=== PATIENT | male | born 1940 | race Caucasian/White ===

== ENCOUNTER 2019-10-13 12:28 | Outpatient (CLI) | payer MEDICARE, SELFPAY ==
[2019-10-13 13:25] LABS: Hemoglobin A1C 11.6 % (<5.7)
[2019-10-13 13:27] LABS: Alanine Aminotransferase 25 U/L (4-50); Albumin Level 3.9 g/dL (3.5-5.1); Alkaline Phosphatase 84 U/L (38-126); Anion Gap 13.7 mmol/L (7-16); Aspartate Amino Transferase 19 U/L (17-59); Bilirubin,Total 0.8 mg/dL (0.2-1.3); Blood Urea Nitrogen 11 mg/dL (9-20); Calcium 8.8 mg/dL (8.4-10.2); Carbon Dioxide 27 mmol/L (22-30); Chloride 93 mmol/L (98-107); Estimated Glomerular Filt Rate > 60; Glucose 459 mg/dL (75-110); Potassium 4.7 mmol/L (3.4-5.0); Sodium 129 mmol/L (137-145)
[2019-10-13 13:38] LABS: LDL Cholesterol Direct 62 mg/dL
[2019-10-13 13:55] LABS: Creatinine Urine 116.3 mg/dL
[2019-10-13 13:57] LABS: MALB Creatinine Ratio 7.8 mg/g (0-30); Microalbumin Urine Random 9.1 mg/L (0-16.7)
== END 2019-10-13 12:29 | disposition home or self-care (01) ==
PROVIDERS: PCP Internal Medicine Geriatric Medicine; Visit Provider Internal Medicine Geriatric Medicine
DX: E11.9 Type 2 diabetes mellitus without complications (principal)
CPT/HCPCS: 36415; 80053; 82043; 83036; 83721

== ENCOUNTER 2020-01-19 12:59 | Observation (INO) | payer MEDICARE, SELFPAY ==
[2020-01-19] VITALS (11 sets, daily range): BP systolic 108–147; BP diastolic 58–81; PULSE 73–87; RESP 16–20; TEMP 36.6–36.9; O2SAT 96–100; BMI 35.6
--- NOTE | ~2020-01-19 | XR_ITS ---
EXAMINATION: XR chest 2V DATE: 01/19/2020 13:31 INDICATION: Chest pain TECHNIQUE: AP and lateral views of the chest are obtained. COMPARISON: None available FINDINGS: Cardiomegaly is noted. There appears to be a mild diffuse interstitial pattern. There is no pleural effusion or pneumothorax. Median sternotomy wires and mediastinal surgical clips are seen, l ikely from prior coronary artery bypass grafting. Changes of anterior fusion procedure are noted in t he cervical spine. There is mild thoracic spondylosis. IMPRESSION: 1. Cardiomegaly with possible mild pulmonary edema. Reviewed, dictated and finalized at location A. IAL COLLECTIONS LIBRARIAN
--- NOTE | ~2020-01-19 | XR_ITS ---
EXAMINATION: XR abdomen/kub 1V EXAM DATE: 01/19/2020 15:58 INDICATION: Abdominal distention. Appendectomy. TECHNIQUE: Frontal projection(s) of the abdomen for interpretation. There is no prior study for susie truong. FINDINGS: There is expected amount of colonic stool and gas. No small bowel dilation, nonobstructiv e bowel gas pattern. There are no suspicious calcifications identified. There is no organomegaly suspected. The bones are unremarkable. IMPRESSION: Unremarkable abdomen x-ray exam. Reviewed, dictated and finalized at location B. AWAKE COUNSELOR
--- NOTE | 2020-01-19 13:10 | ECG_ITS ---
Measurements Intervals [place] Rate: 77 P: 3 AL: 171 QRS: -5 QRSD: 115 T: 64 QT: 354 QTc: 402 Interpretive Statements SINUS RHYTHM BORDERLINE R WAVE PROGRESSION, ANTERIOR LEADS BASELINE ARTIFACT- II, III, AVR, AVL, AVF BORDERLINE ECG Electronically Signed On 01-19-2020 13:29:44 METALLOGRAPHIC TECHNICIAN by Marcellus Hernandez D.O.
[2020-01-19 13:22] LABS: Basophils Percent Auto 0.4 % (0.2-1.2); Eosinophils Absolute Auto 0.1 K/mm3 (0-0.3); Hematocrit 42.4 % (42.0-52.0); Hemoglobin 15.1 g/dL (14.0-18.0); Immature Granulocyte Absolute 0.04 K/mm3 (0.00-0.031); Immature Granulocyte Percent A 0.4 % (0-0.5); Lymphocytes Percent Auto 14.1 % (18.3-44.2); Mean Corpuscular HGB Conc 35.6 g/dl (32-36); Mean Corpuscular Hemoglobin 30.9 pg (26-34); Mean Corpuscular Volume 86.9 fl (80-100); Mean Platelet Volume 10.1 fl (7.4-10.4); Monocytes Absolute Auto 1.3 K/mm3 (0.1-0.6); Monocytes Percent Auto 11.3 % (2.6-8.5); Neutrophils Absolute Auto 8.3 K/mm3 (1.3-6.7); Neutrophils Percent Auto 72.8 % (45.5-73.1); Platelet Count Result 184 k/mm3 (150-375); Red Blood Count 4.88 M/mm3 (4.6-6.20); Red Cell Distribution Width 12.4 % (11.5-14.5); White Blood Count 11.3 K/mm3 (4.5-10.0)
[2020-01-19 13:31] LABS: INR 1.1; Prothrombin Time 14.3 Seconds (11.1-14.7)
[2020-01-19 13:32] LABS: Partial Thromboplastin Time 29.2 SECONDS (22.3-36.8)
[2020-01-19 13:34] LABS: Anion Gap 9 mmol/L (8-16); Blood Urea Nitrogen 12 mg/dL (9-20); Calcium 8.4 mg/dL (8.4-10.2); Carbon Dioxide 26 mmol/L (22-30); Chloride 97 mmol/L (98-107); Estimated CRCL calculation 69 ml/min; Estimated Glomerular Filt Rate > 60; Glucose 296 mg/dL (75-110); Potassium 3.7 mmol/L (3.4-5.0); Sodium 132 mmol/L (137-145)
[2020-01-19 13:38] LABS: Alanine Aminotransferase 20 U/L (4-50); Albumin Level 3.8 g/dL (3.5-5.1); Alkaline Phosphatase 117 U/L (38-126); Aspartate Amino Transferase 18 U/L (17-59); Bilirubin,Total 1.6 mg/dL (0.2-1.3); Lipase 53 U/L (23-300)
[2020-01-19] MEDS: ASPIRIN 81 MG CHEWABLE TABLET 324 MG PO (13:50)
--- NOTE | 2020-01-19 13:51 | ED.CHESTPAIN ---
HPI - Chest Pain General Chief Complaint: Chest Pain Stated Complaint: ABD AND CHEST PAIN Time Seen by Provider: 01/19/20 13:07 Source: patient Mode of arrival: EMS Limitations: dementia History of Present Illness HPI narrative: THis patient is a 79 year old male with history of CAD s/p CABG and dementia who presents for evaluation of chest pain and abdominal pain . PAtient does not have any chest pain or abdominal pain. He denies any symptoms. He denies cough, fever, nausea, vomiting or diarrhea. He presented via EMS from home. Related Data Home Medications Medication Instructions Recorded Confirmed aspirin 81 mg PO DAILY 01/19/20 atorvastatin 40 mg PO HS 01/19/20 citalopram 20 mg PO DAILY 01/19/20 donepezil 10 mg PO HS 01/19/20 gabapentin 300 mg PO HS 01/19/20 glimepiride 4 mg PO DAILY 01/19/20 insulin NPH and regular human 10 sliding scale dose SUBCUT TID 01/19/20 01/19/20 [Humulin 70/30 U-100 Insulin] Allergies Allergy/AdvReac Type Severity Reaction Status Date / Time No Known Allergies Allergy Verified 01/19/20 13:51 Review of Systems Review of Systems: All systems reviewed & are unremarkable except as noted in HPI and below Constitutional: Constitutional: Denies chills and Denies fever(s) ENT: Denies nasal congestion Cardiovascular: Cardiovascular: Denies rapid heart rate and Denies radiating jaw, neck or arm pain Respiratory: Respiratory: Denies cough and Denies dyspnea Gastrointestinal: Gastrointestinal: Denies abdominal pain, Denies diarrhea, Denies nausea and Denies vomiting Musculoskeletal: Musculoskeletal: Denies back pain REPLACED BY [facility] Past Medical History Medical History (Updated 01/19/20 @ 17:21 by Salina Espinoza MD) Dementia Surgical History Surgical History (Updated 01/19/20 @ 13:54 by Salina Espinoza MD) Hx of CABG Exam Const: General: no acute distress and alert Other: oriented to person and place Eyes: Pupils: Equal, round and reactive pupils present EOM: EOMs intact bilaterally Neck: Neck: normal visual inspection and no lymphadenopathy Resp: Effort & Inspection: normal respiratory effort and no retractions Auscultation: clear to auscultation bilaterally Cardio: Rate: regular rate Rhythm: regular rhythm Heart sounds: no murmurs GI: GI Palp: Yes Soft to palpation, No Tenderness to palpation present (GI), No Guarding due to palpation present (GI), No Rigid due to palpation and No Hernia present Skin: General skin exam: normal color Rashes: no rashes Neuro: General: patient oriented x3 and moves all extremities Extrem: General: normal to inspection Psych: Mental Status: mental status grossly normal Affect: normal affect Course Reevaluation(s) Reevaluation #1: PAtient's reports patient reports he did not feel well last night and he reported chest pain. PAtient still denies chest pain. I Discussed he will be admitted for observation. She reports he has gained weight and his abdomen seems bloated. He has not tenderness. Date: 01/19/20 Time: 14:47 Vital Signs Vital signs: Vital Signs Temperature 98.1 F 01/19/20 13:00 Pulse Rate 79 01/19/20 13:00 Respiratory Rate 20 01/19/20 13:00 Blood Pressure 134/81 01/19/20 13:00 Pulse Oximetry 99 01/19/20 13:00 Temperature 98.1 F 01/19/20 13:00 Pulse Rate 73 01/19/20 15:30 Respiratory Rate 18 01/19/20 15:30 Blood Pressure 108/58 L 01/19/20 15:30 Pulse Oximetry 98 01/19/20 15:30 MDM - Chest Pain Lab Data Attestation: I reviewed the patient's lab results. Result diagrams: 01/19/20 13:14 01/19/20 13:14 Labs: Lab Results 01/19/20 01/19/20 01/19/20 Range/Units 13:14 13:14 13:14 WBC 11.3 H (4.5-10.0) K/mm3 RBC 4.88 (4.6-6.20) M/mm3 Hgb 15.1 (14.0-18.0) g/dL Hct 42.4 (42.0-52.0) % MCV 86.9 (80-100) fl MCH 30.9 (26-34) pg MCHC 35.6 (32-36) g/dl RDW 12.4 (11.5-14.5) % Plt Co
[2020-01-19 14:49] LABS: Add Urine Microscopic? YES; Appearance Urine Clear (Clear); Bacteria Urine Trace /hpf; Bilirubin Urine Negative (Negative); Blood Urine 2+ (Negative); Color Urine Yellow (Yellow); Glucose Urine UA 3+ mg/dL (Negative); Ketones Urine Trace mg/dL (Negative); Leukocyte Esterase Ur Negative LEU/UL (Negative); Mucus Urine Heavy /lpf; Nitrate Urine Negative (Negative); Protein Urine 1+ mg/dL (Negative); RBC Urine 21-50 /hpf (0-2); Specific Grav Ur 1.027 (1.001-1.035); Squamous Epithelial Cell Urine Rare /hpf (Few)
--- NOTE | 2020-01-19 15:04 | PC.NURSE ---
Report given to HUBER Sunshine
[2020-01-19 16:42] LABS: NT Pro B Type Natriuretic Pept 1100 PG/ML (5-100); Troponin I 0.114 ng/mL (0.000-0.034)
--- NOTE | 2020-01-19 17:51 | ADMGEN ---
This patient, [place] Jalen Turner , was admitted to IMU Room 206-02. Patient/family oriented to hospital policies and general routines including ID bracelet, bed and alarms, visiting hours, pain management, procedures, bathroom and other care routines, personal items, smoking policy, room service/diet, and visiting hours. Information on how to activate the Rapid Response Team has been discussed. Patient/Family are encouraged to report perceived risks to care and to ask questions if they do not understand what they are told or what they should do.
--- NOTE | 2020-01-19 19:30 | PM.IMHP ---
H&P: HPI History of Present Illness Date/Time: 01/19/20 19:30 Chief complaint: Chest Pain. Narrative: [place] Jalen Turner Jr. is a 79-year-old male with Alzheimer's dementia, coronary artery disease status post CABG, hyperlipidemia, type 2 diabetes mellitus who presented to the emergency department earlier today via EMS from home for evaluation of chest pain. He seems to have pretty severe dementia and is not able to provide me with much history whatsoever due to such (he does not know his medical history, family history, does not recall if he has children, and is unaware that he is in the hospital). At the time my evaluation he is not aware that he is at the hospital and confabulates. As such a majority of this history is obtained via a review of his electronic medical records; his has just left and I have not been able to get a hold of her for any information. According to the triage note, the patient was complaining of chest pain and possible abdominal pain for the past 2 days. In the emergency department and upon my evaluation he has no concerns and specifically denies chest and abdominal pain. It is noted that his troponin level was elevated on lab work done on presentation, and he is being admitted in this setting. He currently has no complaints and states no to every question that I ask of him. Review of Systems Review of Systems: Narrative: Unable to be accurately obtained given his severe dementia. [facility] Past Medical History Medical History (Updated 01/19/20 @ 21:55 by Lou Santos PA-C) Anxiety Coronary artery disease Dementia with behavioral disturbance Per the patient does sundown. Depression Hyperlipidemia Type 2 diabetes mellitus Surgical History Surgical History (Updated 01/19/20 @ 21:32 by Lou Santos PA-C) History of appendectomy History of coronary artery bypass graft x 3 Family History Family History (Updated 01/19/20 @ 21:33 by Lou Santos PA-C) Other Family history unknown Social History Social History (Updated 01/19/20 @ 21:33 by Lou Santos PA-C) Social History: Surrogate decision maker: Lupe Turner, spouse. Code status: Full code. Smoking status: Never smoker Alcohol intake: never Substance use: never Substance use type: does not use Additional living arrangements comments: Resides in [place] with his . Additional occupation/education comments: Retired. Gender identity (if verbalized by the patient): Male Spiritual care concerns: No Meds Home Medications and Allergies Home Medications Medication Instructions Recorded Confirmed Type aspirin 81 mg PO DAILY 01/19/20 01/19/20 History atorvastatin 40 mg PO HS 01/19/20 01/19/20 History citalopram 20 mg PO DAILY 01/19/20 01/19/20 History donepezil 10 mg PO HS 01/19/20 01/19/20 History gabapentin 300 mg PO HS 01/19/20 01/19/20 History glimepiride 4 mg PO QAM 01/19/20 01/19/20 History Allergies Allergy/AdvReac Type Severity Reaction Status Date / Time No Known Allergies Allergy Verified 01/19/20 13:51 Vital Signs Vital Signs - 24 hr 01/19/20 13:00 01/19/20 13:08 01/19/20 13:49 Temperature 98.1 F Pulse Rate 79 79 76 Respiratory Rate 20 18 Blood Pressure 134/81 112/61 Pulse Oximetry 99 97 01/19/20 14:30 01/19/20 15:30 01/19/20 17:23 Temperature 98.4 F Pulse Rate 79 73 77 Respiratory Rate 18 18 16 Blood Pressure 130/64 108/58 L 108/62 Pulse Oximetry 99 98 100 01/19/20 17:43 01/19/20 17:58 01/19/20 19:46 Temperature 97.9 F 98.5 F Pulse Rate 77 79 82 Respiratory Rate 20 20 Blood Pressure 113/69 147/73 H Pulse Oximetry 96 99 Exam Narrative: Exam Narrative: General: Well-developed male sitting up in bed in no distress. Weight: 100 kg. BMI: 35.6. HEENT: PERRL, EOMI. Sclerae anicteric. Conjunctiva mildly injected. Oral mucosa moist. Oropharynx is poorly visualized. Neck: Supple. No JVD. Respiratory: Lung
[2020-01-19 19:46] LABS: Troponin I 0.111 ng/mL (0.000-0.034)
[2020-01-19] MEDS: GABAPENTIN 300 MG CAPSULE PO (22:07)
[2020-01-19] MEDS: DONEPEZIL HCL 10 MG TABLET PO (22:07)
[2020-01-20] VITALS (14 sets, daily range): BP systolic 127–162; BP diastolic 66–84; PULSE 74–93; RESP 18–22; TEMP 36–36.7; O2SAT 95–100
[2020-01-20 05:26] LABS: Hematocrit 38.9 % (42.0-52.0); Mean Corpuscular Hemoglobin 30.8 pg (26-34); Mean Corpuscular Volume 85.5 fl (80-100); Mean Platelet Volume 10.5 fl (7.4-10.4); Platelet Count Result 192 k/mm3 (150-375); Red Blood Count 4.55 M/mm3 (4.6-6.20); White Blood Count 10.1 K/mm3 (4.5-10.0)
[2020-01-20 05:38] LABS: Anion Gap 9 mmol/L (8-16); Blood Urea Nitrogen 15 mg/dL (9-20); Calcium 8.3 mg/dL (8.4-10.2); Carbon Dioxide 26 mmol/L (22-30); Chloride 97 mmol/L (98-107); Estimated CRCL calculation 67 ml/min; Estimated Glomerular Filt Rate > 60; Glucose 256 mg/dL (75-110); Magnesium 1.6 mg/dL (1.6-2.3); Potassium 3.3 mmol/L (3.4-5.0); Sodium 132 mmol/L (137-145)
[2020-01-20 05:54] LABS: Hemoglobin A1C 10.7 % (<5.7)
--- NOTE | 2020-01-20 06:00 | ECHO_ITS ---
Patient Info Name: Adrián Turner Age: 79 years : 1940 Gender: Male Ht: 66 in Wt: 220 lbs BSA: 2.20 m2 HR: 87 bpm BP: 127 / 68 mmHg Heart Rhythm: Sinus Rhythm Technical Quality: Good Exam Date: 01/20/2020 10:17 AM Exam Location: [facility] Pulmonary Exam Room: [facility] Patient Status: Inpatient Admit Date: 01/19/2020 Staff Ordering Physician: Salina Espinoza MD Lead Sewage Plant Operator: Alla Porras RDCS Attending Provider: Jeannie Jason MD Referring Physician: Olga NELSON; Exam Type: CA echo doppler color flow Study Info Indications - CM CHEST PAIN Complete two-dimensional, color flow and Doppler transthoracic echocardiogram is performed. Summary 1. Complete two-dimensional, color flow and Doppler transthoracic echocardiogram is performed. 2. Left ventricular chamber dimension is normal. 3. Left ventricular systolic function is normal, estimated at 65-70%. 4. There is mildly increased left ventricular wall thickness. 5. The left ventricular diastolic function is grade I diastolic dysfunction. 6. The apical inferior wall is hypokinetic. 7. Left atrial chamber dimension is mildly enlarged. 8. There is moderate aortic valve sclerosis. 9. The mitral valve has thickened leaflets. 10. There is mild mitral valve regurgitation. 11. The mitral valve annulus is severely calcified. 12. There is mild tricuspid valve regurgitation. 13. There is mild pulmonic regurgitation. Left Ventricle Left ventricular chamber dimension is normal. Left ventricular systolic function is normal, estimated at 65-70%. There is mildly increased left ventricular wall thickness. The left ventricular diastolic function is grade I diastolic dysfunction. The apical inferior wall is hypokinetic. All other browning appear normal. Right Ventricle Right ventricular chamber dimension is normal. Right ventricular systolic function is normal. Left Atria Left atrial chamber dimension is mildly enlarged. Right Atria Right atrial chamber dimension is normal. Atrial Septum Intact interatrial septum visualized by color flow imaging. Aortic Valve The aortic valve is trileaflet. There is moderate aortic valve sclerosis. There is no aortic valve stenosis. There is trace aortic valve regurgitation. Pulmonic Valve The pulmonic valve is normal. There is no pulmonic valve stenosis. There is mild pulmonic regurgitation. Mitral Valve The mitral valve has thickened leaflets. There is no mitral valve stenosis. There is mild mitral valve regurgitation. The mitral valve annulus is severely calcified. Tricuspid Valve The tricuspid valve leaflets are normal. There is no significant tricuspid valve stenosis. There is mild tricuspid valve regurgitation. No pulmonary hypertension, estimated pulmonary arterial systolic pressure is 31 mmHg. Pericardium/Pleural The pericardium appears normal. There is no pericardial effusion. Inferior Vena Cava Normal inferior vena cava with >50% collapse upon inspiration consistent with normal right atrial pressure, 10 mmHg. Aorta The aortic root size at the sinus of Valsalva is normal. The prox ascending aorta size is normal. Left Ventricular Outflow Tract Name Value Normal LVOT 2D
--- NOTE | 2020-01-20 07:52 | ECG_ITS ---
Measurements Intervals [place] Rate: 84 P: 0 [place]: 168 QRS: 3 QRSD: 116 T: 34 QT: 364 QTc: 432 Interpretive Statements SINUS RHYTHM POOR R WAVE PROGRESSION, ANTERIOR LEADS BASELINE ARTIFACT- I, III, AVR, AVL, AVF BORDERLINE ECG Electronically Signed On 01-20-2020 8:25:59 FRONT DESK AGENT by Marcellus Hernandez D.O.
[2020-01-20] MEDS: ASPIRIN 81 MG CHEWABLE TABLET PO (08:45)
[2020-01-20] MEDS: CITALOPRAM HYDROBROMIDE 20 MG TABLET PO (08:53)
[2020-01-20] MEDS: GLIMEPIRIDE 2 MG TABLET 4 MG PO (08:53)
--- NOTE | 2020-01-20 13:12 | PM.IMPN ---
Progress Note: A&P Assessment and Plan (1) Chest pain: Code(s): R07.9 - Chest pain, unspecified Status: Acute Assessment and Plan: The patient has been admitted for reported chest pain over the past 2 days, however he is not able to provide me any information due to his severe dementia. Troponins are elevated and will be trended. Echocardiogram in a.m. Cardiology has been consulted Continue aspirin and statin. Hopeful discharge after cardiology consultation. (2) Elevated troponin: Code(s): R77.8 - Other specified abnormalities of plasma proteins Status: Acute Assessment and Plan: Cardiology consulted. (3) Dementia with behavioral disturbance: Code(s): F03.91 - Unspecified dementia with behavioral disturbance Status: Chronic (4) Type 2 diabetes mellitus: Code(s): E11.9 - Type 2 diabetes mellitus without complications Status: Chronic Assessment and Plan: SSI, accuchecks (5) Hyperlipidemia: Code(s): E78.5 - Hyperlipidemia, unspecified Status: Chronic Assessment and Plan: Statins (6) Coronary artery disease: Code(s): I25.10 - Atherosclerotic heart disease of [place] coronary artery without angina pectoris Status: Chronic Assessment and Plan: ASA and statins Subjective Date/time seen: 01/20/20 13:12 Interval history: Yue Alvarado is a 79-year-old male with Alzheimer's dementia, coronary artery disease status post CABG, hyperlipidemia, type 2 diabetes mellitus who presented to the emergency department earlier today via EMS from home for evaluation of chest pain. Pt had zyprexa orally yesterday, today is sleeping well, telemetry shows NSR, trop slightly raised. Review of Systems Review of Systems: ROS unobtainable: Yes unobtainable due to mental status Exam Const: General: cooperative and healthy appearing; No in distress Nutritional Appearance: overweight Orientation/consciousness: oriented to person HENMT: Head: normal to inspection Resp: Effort & Inspection: no respiratory distress Auscultation: no rhonchi and no wheezes Cardio: Rate: regular rate Rhythm: regular rhythm GI: Inspection: normal to inspection GI Palp: No abdominal tenderness, No Guarding due to palpation present (GI) and No Hepatomegaly present Auscultation: normal bowel sounds Neuro: General: oriented to person Objective Data Vital Signs Vital Signs: Vital Signs - 24 hr 01/19/20 13:49 01/19/20 14:30 01/19/20 15:30 Temperature Pulse Rate 76 79 73 Respiratory Rate 18 18 18 Blood Pressure 112/61 130/64 108/58 L Pulse Oximetry 97 99 98 01/19/20 17:23 01/19/20 17:43 01/19/20 17:58 Temperature 36.9 C 36.6 C Pulse Rate 77 77 79 Respiratory Rate 16 20 Blood Pressure 108/62 113/69 Pulse Oximetry 100 96 01/19/20 19:46 01/19/20 20:00 01/19/20 22:00 Temperature 36.9 C Pulse Rate 82 87 85 Respiratory Rate 20 Blood Pressure 147/73 H Pulse Oximetry 99 01/20/20 00:00 01/20/20 02:00 01/20/20 03:43 Temperature 36.7 C 36.7 C Pulse Rate 87 83 88 Respiratory Rate 20 20 Blood Pressure 139/67 127/68 Pulse Oximetry 97 97 01/20/20 04:00 01/20/20 06:00 01/20/20 08:00 Temperature 36.4 C L Pulse Rate 87 88 81 Respiratory Rate 18 Blood Pressure 154/71 H Pulse Oximetry 100 01/20/20 12:00 Temperature 36.0 C L Pulse Rate 74 Respiratory Rate 18 Blood Pressure 162/84 H Pulse Oximetry 99 Intake/Output Intake/Output: Intake & Output 01/17/20 01/18/20 01/19/20 01/20/20 23:59 23:59 23:59 23:59 Intake Total 500 Output Total 750 Balance -250 Meds/Results Medications: Active Medications Generic Name Dose Route Start Last Admin Trade Name Alexey PRN Reason Stop Dose Admin Aspirin 81 mg 01/20/20 08:00 Aspirin 81 Mg Chewable Tablet PO DAILY@0800 [facility] Atorvastatin Calcium 40 mg 01/20/20 21:00 Atorvastatin 40 Mg Tablet PO Q48H [facility] Citalopram Hydrob
--- NOTE | 2020-01-20 16:48 | PM.CNCAR ---
Assessment and Plan Assessment and plan (1) Elevated troponin: Code(s): R77.8 - Other specified abnormalities of plasma proteins Status: Acute Assessment and Plan: this likely represents a small non ST elevation myocardial infarction. given his severe dementia, it is most appropriate at this point to treat him medically. Will initiate isosorbide mononitrate therapy 30 mg daily. Will also start low-dose metoprolol 12.5 mg p.o. b.i.d.. Echocardiogram is already ordered and will be reviewed. Patient's will discuss with family about possible eventual stress testing. Stress testing could be performed even as an outpatient. I did emphasize though to the patient as well as the patient's that his severe dementia should be considered when ordering or doing any type of stress testing. Obviously if able, medical management is most appropriate. If he has recurrence her severe symptoms despite optimal medical therapy, could consider ischemic evaluation at that point if family is agreeable to pursue medical treatment only at this point. Will keep NPO after midnight just in case stress testing is preferred (2) Dementia with behavioral disturbance: Code(s): F03.91 - Unspecified dementia with behavioral disturbance Status: Chronic Assessment and Plan: Significant (3) Coronary artery disease: Code(s): I25.10 - Atherosclerotic heart disease of [place] coronary artery without angina pectoris Status: Chronic Assessment and Plan: remote history of CABG (4) Hypertension associated with diabetes: Code(s): E11.59 - Type 2 diabetes mellitus with other circulatory complications; I10 - Essential (primary) hypertension Status: Acute Assessment and Plan: generally controlled while here in the hospital (5) Hyperlipidemia associated with type 2 diabetes mellitus: Code(s): E11.69 - Type 2 diabetes mellitus with other specified complication; E78.5 - Hyperlipidemia, unspecified Status: Acute Assessment and Plan: continue statin (6) Chest pain: Code(s): R07.9 - Chest pain, unspecified Status: Acute History of Present Illness History of Present Illness Consult date/time: 01/20/20 16:48 Requesting physician: Lou Santos PA-C Consult reason: chest pain Reason For Visit: Chest Pain. Narrative: date of service 01/20/2020 Reason for consultation: Chest pain, CAD History patient 79-year-old male who has significant dementia, coronary disease history of bypass grafting several years ago performed at [facility]. He formally saw Dr. Bear at [facility] in [facility] but has not been seen in a couple of years. He also has hypertension, hyperlipidemia, diabetes. He came to hospital because of chest pain. Patient himself is a very poor historian and cannot give me much information. Patient's is at bedside and predominantly history is obtained by reviewing chart record and in talking to her. Reportedly the patient was not feeling very well in the evening prior to admission. Starting about 7:38 a.m. he had some discomfort and uncomfortable feeling in his chest. Reportedly did not necessarily radiate into his arm back neck or jaw but did have some nausea and shortness of breath and sweatiness. Patient went to sleep at about 11 30 and woke up the next morning still feeling poorly. At that time it was decided that he needed to come to the emergency department for further evaluation. He reportedly was having some abdominal pain also over the past couple days and some bloating. He currently is not having any issues and denies any chest pain, shortness of breath. He has had no recent syncope, presyncope, paroxysmal nocturnal dyspnea, orthopnea, edema or palpitations. Review of Systems Review of Systems: All systems reviewed & are unremarkable except as noted in HPI and below Constitutional: Constitutional: Teri
[2020-01-20] MEDS: ISOSORBIDE MONONITRATE 30 MG TAB.ER.24H PO (17:40)
[2020-01-20] MEDS: DONEPEZIL HCL 10 MG TABLET PO (20:20)
[2020-01-20] MEDS: ATORVASTATIN 40 MG TABLET PO (20:20)
[2020-01-20] MEDS: GABAPENTIN 300 MG CAPSULE PO (20:21)
[2020-01-20] MEDS: METOPROLOL TARTRATE 12.5 MG TABLET PO (20:21)
[2020-01-21] VITALS (8 sets, daily range): BP systolic 119–131; BP diastolic 59–82; PULSE 74–80; RESP 18–20; TEMP 36.3–36.5; O2SAT 95–100
[2020-01-21] MEDS: GLIMEPIRIDE 2 MG TABLET 4 MG PO (08:51)
[2020-01-21] MEDS: METOPROLOL TARTRATE 12.5 MG TABLET PO (08:51)
[2020-01-21] MEDS: CITALOPRAM HYDROBROMIDE 20 MG TABLET PO (08:51)
[2020-01-21] MEDS: ASPIRIN 81 MG CHEWABLE TABLET PO (08:51)
[2020-01-21] MEDS: ISOSORBIDE MONONITRATE 30 MG TAB.ER.24H PO (08:51)
--- NOTE | 2020-01-21 12:00 | PM.PNCARD ---
Progress Note: A&P Assessment and Plan (1) Elevated troponin: Code(s): R77.8 - Other specified abnormalities of plasma proteins Status: Acute Assessment and Plan: Likely small non ST elevation myocardial infarction. Given his severe dementia, it is most appropriate at this point to treat him medically. Family is in agreement. Continue aspirin, atorvastatin, isosorbide mononitrate and metoprolol tartrate q.12 hours. (2) Dementia with behavioral disturbance: Code(s): F03.91 - Unspecified dementia with behavioral disturbance Status: Chronic Assessment and Plan: Significant (3) Coronary artery disease: Code(s): I25.10 - Atherosclerotic heart disease of [place] coronary artery without angina pectoris Status: Chronic Assessment and Plan: Remote history of CABG. Plan as above (4) Hypertension associated with diabetes: Code(s): E11.59 - Type 2 diabetes mellitus with other circulatory complications; I10 - Essential (primary) hypertension Status: Acute Assessment and Plan: Generally controlled. l (5) Hyperlipidemia associated with type 2 diabetes mellitus: Code(s): E11.69 - Type 2 diabetes mellitus with other specified complication; E78.5 - Hyperlipidemia, unspecified Status: Acute Assessment and Plan: Continue statin (6) Chest pain: Code(s): R07.9 - Chest pain, unspecified Status: Acute Assessment and Plan: Denied any chest discomfort today. Plan as above. Additional Plan OK to discharge from cardiac standpoint. Does not need cardiology follow-up at this time. Plan discussed with Dr. Perla 1210 01/21/2020 Subjective Date/time seen: 01/21/20 12:00 Interval history: Follow-up for: Non ST-elevation myocardial infarction, history of coronary artery disease, hypertension, hyperlipidemia, dementia Date of service: 01/21/2020 Subjective: Denies chest discomfort, shortness of breath, lightheadedness or palpitations. Only complaint is left-sided neck pain. States he is unable to turn his head Review of Systems Constitutional: Constitutional: Denies headache(s) and Denies weakness Eyes: Eyes: Denies blurry vision ENT: Denies dizziness, Denies headache(s), Denies lip swelling and Reports neck pain Cardiovascular: Cardiovascular: Denies chest pain, Denies lightheadedness and Denies dyspnea Respiratory: Respiratory: Denies dyspnea Gastrointestinal: Gastrointestinal: Denies nausea and Denies vomiting Genitourinary: Genitourinary: Denies dysuria Musculoskeletal: Musculoskeletal: Denies neck pain Integumentary/Breasts: Skin/Breast: Denies dry skin Neurologic: Reports Normal hearing present, Denies headache(s) and Denies weakness Psychiatric: Psychiatric: Denies anxiety Endocrine: Endocrine: Denies fatigue Hematologic/Lymphatic: Hematologic/Lymphatic: Denies easy bleeding Allergic/Immunologic: Allergic/Immunologic: Denies GI upset with certain foods and Denies lip swelling Exam Narrative: Exam Narrative: Sitting up in chair. at bedside. Rambling. Const: General: cooperative, no acute distress and uncomfortable (Complaining of left-sided neck pain) Orientation/consciousness: confusion HENMT: General nose exam: Normal nares present Eyes: Sclera: sclerae normal Neck: Neck: supple Chest: Other: no reproducible chest wall pain to palpation Resp: Effort & Inspection: normal respiratory effort and able to speak in complete sentences Auscultation: clear to auscultation bilaterally Cardio: Rate: regular rate Rhythm: regular rhythm Peripheral pulses: Peripheral pulses 2+ throughout GI: Inspection: normal to inspection GI Palp: Yes Soft to palpation Skin: General skin exam: normal color Lesions: no lesions Rashes: no rash
[2020-01-21] MEDS: ACETAMINOPHEN 325 MG TABLET 650 MG PO (12:36)
--- NOTE | 2020-01-21 13:28 | PM.DS ---
DS: Admitting Diagnosis Admitting Diagnosis Admitting Diagnosis: Chest Pain. DS: Discharge Diagnosis Discharge Diagnosis (1) Chest pain: Code(s): R07.9 - Chest pain, unspecified Status: Acute Assessment and Plan: The patient has been admitted for reported chest pain over the past 2 days, however he is not able to provide me any information due to his severe dementia. Troponins are elevated and will be trended. Echocardiogram shows -Left ventricular chamber dimension is normal. Left ventricular systolic function is normal, estimated at 65-70%.There is mildly increased left ventricular wall thickness. Cardiology has been consulted, pt did have a NSTEMI. Pt to continue with medical management, not so any intervention. Continue aspirin and statin. PCP follow up at this time. (2) Elevated troponin: Code(s): R77.8 - Other specified abnormalities of plasma proteins Status: Acute Assessment and Plan: Cardiology consulted. see above (3) Dementia with behavioral disturbance: Code(s): F03.91 - Unspecified dementia with behavioral disturbance Status: Chronic Assessment and Plan: Severe dementia (4) Type 2 diabetes mellitus: Code(s): E11.9 - Type 2 diabetes mellitus without complications Status: Chronic Assessment and Plan: Continue home medications (5) Hyperlipidemia: Code(s): E78.5 - Hyperlipidemia, unspecified Status: Chronic Assessment and Plan: Statins (6) Coronary artery disease: Code(s): I25.10 - Atherosclerotic heart disease of [place] coronary artery without angina pectoris Status: Chronic Assessment and Plan: ASA and statins DS: Summary Time Spent with Patient Time attestation: Total time spent providing and/or coordinating discharge services:40 minutes on day of discharge Exam Const: General: confusion and other (severe dementia ); No in distress Nutritional Appearance: overweight Orientation/consciousness: oriented to person HENMT: Head: normal to inspection Resp: Effort & Inspection: no respiratory distress Auscultation: no rhonchi and no wheezes Cardio: Rate: regular rate Rhythm: regular rhythm GI: Inspection: normal to inspection Auscultation: normal bowel sounds Neuro: General: oriented to person Discharge Plan Discharge Attending physician on discharge: Jeannie Jason Consulting providers: Luis A Perla Discharging Clinician: Jeannie Jason Anticipated Discharge Date/Time: 01/21/20 13:27 Patient Disposition: Home, Self-Care Activity: as tolerated Diet: heart healthy Discharge Instructions: CARDIOLOGY DISCHARGE INSTRUCTIONS: ACTIVITY: Activity as tolerated with precautions to avoid falls. If you have chest pain that is not relieved by nitroglycerin call [address] to the emergency room. FOLLOW-UP: Follow-up with Primary Care Provider 1-2 weeks. Patient Instructions: Metoprolol (By mouth), Nitroglycerin (By mouth), Aspirin (By mouth), Isosorbide Mononitrate (By mouth) Stand Alone Forms: General Discharge Information Follow-up/Referrals: Isabelle,MD Sangita [Primary Care Provider] - Discharge Medications: New isosorbide mononitrate 30 mg Tablet Extended Release 24 Hr 30 mg PO QAM Qty: 30 RF: 3 metoprolol tartrate 25 mg tablet 12.5 mg PO Q12H Qty: 30 RF: 3 nitroglycerin 0.4 mg tablet, sublingual 0.4 mg sublingual DIRECTED PRN (Reason: chest pain) Qty: 25 RF: 3 aspirin [Children's Aspirin] 81 mg Tablet,Chewable 81 mg PO DAILY@0800 Qty: 60 RF: 0 Continued atorvastatin 40 mg tablet 40 mg PO HS RF: 0 donepezil 10 mg tablet 10 mg PO HS RF: 0 citalopram 20 mg tablet 20 mg PO DAILY RF: 0 gabapentin 300 mg capsule 300 mg PO HS RF: 0 aspirin 81 mg tablet,chewable 81 mg PO DAILY RF: 0 glimepiride 4 mg Tablet 4 mg PO QAM RF: 0
== END 2020-01-21 15:30 | disposition home or self-care (01) ==
LOC: ANHED 13:36 → ANHIMU 16:30
PROVIDERS: Physician Assistant; Admitting Provider Family Medicine; Emergency Provider General Practice; PCP Internal Medicine Geriatric Medicine; Visit Provider Family Medicine
DX: I21.4 Non-ST elevation (NSTEMI) myocardial infarction (principal); R77.8 Other specified abnormalities of plasma proteins; I10 Essential (primary) hypertension; E78.5 Hyperlipidemia, unspecified; I25.10 Atherosclerotic heart disease of native coronary artery without angina pectoris; Z95.1 Presence of aortocoronary bypass graft; F03.91 Unspecified dementia, unspecified severity, with behavioral disturbance; E11.59 Type 2 diabetes mellitus with other circulatory complications; Z79.899 Other long term (current) drug therapy
CPT/HCPCS: 36415; 51701; 71046; 74018; 80048; 80076; 81001; 83036; 83690; 83735; 83880; 84443; 84484; 85025; 85027; 85610; 85730; 87086; 93005; 93306; 99285; A9270; G0378

== ENCOUNTER 2020-04-14 13:20 | Emergency (ER) | payer MEDICARE, SELFPAY ==
[2020-04-14] VITALS (20 sets, daily range): BP systolic 112–171; BP diastolic 51–109; PULSE 77–102; RESP 14–27; TEMP 37.1; O2SAT 94–99
--- NOTE | ~2020-04-14 | CT_ITS ---
EXAMINATION: CT brain wo con DATE: 04/14/2020 14:40 INDICATION: Altered mental status. TECHNIQUE: Computed tomography (CT) of the head was performed without intravenous contrast. The mA wa s adjusted according to patient size. Iterative reconstruction technique was employed. The dose-lengt h product was 605.33 mGy-cm. COMPARISON: None FINDINGS: There is no intracranial hemorrhage, acute infarction, or abnormal intracranial mass lesion . There are scattered areas of low attenuation in the cerebral white matter, which is within normal l imits for the patient's age. The ventricles are normal in size. The orbits are normal. There is mucos al thickening in the paranasal sinuses. There is a small left mastoid effusion. IMPRESSION: 1. Normal aging brain. Reviewed, dictated and finalized at location A. M FITTER IMPRESSION: 1. Normal aging brain.
--- NOTE | ~2020-04-14 | XR_ITS ---
EXAMINATION: XR chest 2V DATE: 04/14/2020 15:14 INDICATION: Transient alteration of awareness TECHNIQUE: frontal and lateral views of the chest were obtained. COMPARISON: Chest radiograph dated 01/19/2020 FINDINGS: Persistent opacities in the anterior left mid and lower lung zone which obscures the left heart borde r. No pulmonary edema, pleural effusion or pneumothorax. Heart size is within normal limits for AP [place]. Median sternotomy wires and mediastinal surgical clips are seen, likely from prior coronary artery bypass grafting. Plate and screw fixation for lower cervical anterior spinal fusion. IMPRESSION: 1. Persistent opacities in the anterior left mid to lower lung zone which could represent a prominent paracardial fat pad, atelectasis or pneumonia. Reviewed, dictated and finalized at location B. R ENGINEER
[2020-04-14 14:42] LABS: Basophils Percent Auto 0.3 % (0.2-1.2); Eosinophils Percent Auto 0.2 % (0-4.4); Hematocrit 43.5 % (42.0-52.0); Hemoglobin 15.8 g/dL (14.0-18.0); Immature Granulocyte Absolute 0.04 K/mm3 (0.00-0.031); Immature Granulocyte Percent A 0.3 % (0-0.5); Lymphocytes Absolute Auto 0.72 K/mm3 (0.9-3.2); Lymphocytes Percent Auto 5.6 % (18.3-44.2); Mean Corpuscular HGB Conc 36.3 g/dl (32-36); Mean Corpuscular Hemoglobin 30.9 pg (26-34); Mean Corpuscular Volume 85.1 fl (80-100); Mean Platelet Volume 10.3 fl (7.4-10.4); Monocytes Absolute Auto 0.9 K/mm3 (0.1-0.6); Monocytes Percent Auto 6.8 % (2.6-8.5); Neutrophils Absolute Auto 11.1 K/mm3 (1.3-6.7); Neutrophils Percent Auto 86.8 % (45.5-73.1); Platelet Count Result 194 k/mm3 (150-375); Red Blood Count 5.11 M/mm3 (4.6-6.20); Red Cell Distribution Width 13.2 % (11.5-14.5); White Blood Count 12.9 K/mm3 (4.5-10.0)
--- NOTE | 2020-04-14 14:48 | ECG_ITS ---
Measurements Intervals [place] Rate: 58 P: -7 HI: 160 QRS: -5 QRSD: 108 T: 8 QT: 346 QTc: 342 Interpretive Statements SINUS RHYTHM DELAYED PRECORDIAL R/S TRANSITION MINIMAL Q WAVES- HIGH LATERAL LEADS BORDERLINE T WAVE ABNORMALITY- INFERIOR LEADS BASELINE ARTIFACT- II, III, AVR, AVL, AVF BORDERLINE ECG Electronically Signed On 04-14-2020 15:08:53 STEAM SHOVEL ENGINEER by Marcellus Hernandez D.O.
[2020-04-14 14:53] LABS: Alanine Aminotransferase 17 U/L (4-50); Albumin Level 3.9 g/dL (3.5-5.1); Alkaline Phosphatase 104 U/L (38-126); Anion Gap 7 mmol/L (8-16); Aspartate Amino Transferase 16 U/L (17-59); Bilirubin,Total 1.2 mg/dL (0.2-1.3); Blood Urea Nitrogen 19 mg/dL (9-20); Calcium 9.3 mg/dL (8.4-10.2); Carbon Dioxide 26 mmol/L (22-30); Chloride 96 mmol/L (98-107); Estimated Glomerular Filt Rate > 60; Glucose 266 mg/dL (75-110); Lipase 134 U/L (23-300); Potassium 4.5 mmol/L (3.4-5.0); Sodium 129 mmol/L (137-145)
--- NOTE | 2020-04-14 15:05 | PC.NURSE ---
received report from [facility] [employer]. patient resting on stretcher. alert. oriented x 1. waiting for work up to be complete. on cardiac cath lab technologist.
--- NOTE | 2020-04-14 15:30 | PC.NURSE ---
patient's son here. states patient is end stage Alzheimer's. patient is at his baseline neuro status right now. lives with his in independent living at [facility]. son states he and his moved to this area 2 years ago to help provide care. stated today to her son that she is comfortable still taking care of him at home. son states patient ambulates out to their mailbox a few times a day for exercise. son states he was sleeping all day. states today she stopped watching him walk very briefly and patient was gone. son is also supportive and comfortable with patient returning home.
--- NOTE | 2020-04-14 16:06 | ED.GENADULT ---
HPI - General Adult General Chief complaint: Altered Mental Status Stated complaint: altered ms, found down outside Time Seen by Provider: 04/14/20 13:34 History of Present Illness HPI narrative: Patient is a 79-year-old male who was found sitting on the ground in a parking lot at [facility] who was found to be oriented to self. There is a theory that he wandered [place] the [place]. While sitting in the parking lot he had one episode of emesis. He is reporting no pain. No known trauma. Related Data Home Medications Medication Instructions Recorded Confirmed aspirin 81 mg PO DAILY 01/19/20 01/19/20 atorvastatin 40 mg PO HS 01/19/20 01/19/20 citalopram 20 mg PO DAILY 01/19/20 01/19/20 donepezil 10 mg PO HS 01/19/20 01/19/20 gabapentin 300 mg PO HS 01/19/20 01/19/20 glimepiride 4 mg PO QAM 01/19/20 01/19/20 Allergies Allergy/AdvReac Type Severity Reaction Status Date / Time No Known Allergies Allergy Verified 01/19/20 13:51 Review of Systems Review of Systems: ROS unobtainable: Yes unobtainable due to mental status PMFSH Past Medical History Medical History (Updated 04/14/20 @ 16:35 by Nabeel Canales MD) Anxiety Coronary artery disease Dementia with behavioral disturbance Per the patient does sundown. Depression Hyperlipidemia Hyperlipidemia associated with type 2 diabetes mellitus Hypertension associated with diabetes Type 2 diabetes mellitus Surgical History Surgical History History of appendectomy History of coronary artery bypass graft x 3 Family History Family History (Updated 01/20/20 @ 16:53 by Luis A Perla MD) Father Alzheimer's dementia Other Family history unknown Social History Social History Social History: Surrogate decision maker: Lupe Turner, spouse. Code status: Full code. Smoking status: Never smoker Alcohol intake: never Substance use: never Substance use type: does not use Additional living arrangements comments: Resides in [place] with his . Additional occupation/education comments: Retired. Gender identity (if verbalized by the patient): Male Spiritual care concerns: No Exam Narrative: Exam Narrative: GENERAL: Well-appearing, well-nourished, and in no acute distress. HEAD: Normocephalic, atraumatic. EYES: PERRL and EOMI. CHEST: Clear to auscultation. No respiratory distress. HEART: Regular rate and rhythm. Normal peripheral pulses. ABDOMEN: Soft, nontender, nondistended. EXTREMITIES: Normal range of motion. No edema. SKIN: Warm, dry, no rash. NEURO: Alert and oriented x1. Pleasantly demented. PSYCH: Normal mood and affect. Course Course Emergency Course: Patient is resting comfortably. The son reports that the patient went out for a walk and the patient's and told him to come back inside. She counted to 30 and he was gone. They are in discussions about whether it is time to move him to a higher level of care but think he is at his normal baseline right now and feel comfortable taking him home. Patient's blood work seems to be in line with his typical blood work here. Vital Signs Vital signs: Vital Signs Pulse Rate 88 04/14/20 13:41 Respiratory Rate 15 04/14/20 13:41 Blood Pressure 163/72 H 04/14/20 13:41 Pulse Oximetry 95 04/14/20 13:41 Temperature 98.7 F 04/14/20 13:50 Pulse Rate 77 04/14/20 16:15 Respiratory Rate 16 04/14/20 16:15 Blood Pressure 139/109 H 04/14/20 15:46 Pulse Oximetry 99 04/14/20 16:15 Medical Decision Making Vital Signs Vital Signs: Vital Signs Pulse Rate 88 04/14/20 13:41 Respiratory Rate 15 04/14/20 13:41 Blood Pressure 163/72 H 04/14/20 13:41 Pulse Oximetry 95 04/14/20 13:41 Temperature 98.7 F 04/14/20 13:50 Pulse Rate 77 04/14/20 16:15 Respiratory Rate 16
[2020-04-14 16:14] LABS: Mucus Urine Few /lpf; RBC Urine 0-2 /hpf (0-2); Squamous Epithelial Cell Urine Rare /hpf (Few); WBC Urine 0-3 /hpf
[2020-04-14 16:15] LABS: Add Urine Microscopic? YES; Appearance Urine Clear (Clear); Bilirubin Urine Negative (Negative); Blood Urine Negative (Negative); Color Urine Yellow (Yellow); Glucose Urine UA 3+ mg/dL (Negative); Ketones Urine 1+ mg/dL (Negative); Leukocyte Esterase Ur Negative LEU/UL (Negative); Nitrate Urine Negative (Negative); Protein Urine 1+ mg/dL (Negative); Specific Grav Ur 1.025 (1.001-1.035)
== END 2020-04-14 16:55 | disposition home or self-care (01) ==
PROVIDERS: Emergency Provider Emergency Medicine; PCP Internal Medicine Geriatric Medicine
DX: F03.91 Unspecified dementia, unspecified severity, with behavioral disturbance (principal); F05 Delirium due to known physiological condition; I25.10 Atherosclerotic heart disease of native coronary artery without angina pectoris; E11.9 Type 2 diabetes mellitus without complications; I10 Essential (primary) hypertension; F41.9 Anxiety disorder, unspecified; F32.9 Major depressive disorder, single episode, unspecified; Z95.1 Presence of aortocoronary bypass graft; Z79.82 Long term (current) use of aspirin; Z79.84 Long term (current) use of oral hypoglycemic drugs
CPT/HCPCS: 36415; 70450; 71046; 80048; 80076; 81001; 83690; 85025; 93005; 99284

== ENCOUNTER 2020-12-16 17:45 | Emergency (ER) | payer MEDICARE, SELFPAY ==
--- NOTE | ~2020-12-16 | XR_ITS ---
EXAMINATION: XR chest 2V DATE: 12/16/2020 19:51 INDICATION: Generalized chest pain TECHNIQUE: AP and lateral views of the chest are obtained. COMPARISON: 04/14/2020 FINDINGS: The lungs are free of acute opacities. Unchanged opacities of the left mid and lower lung z ones likely represents a prominent pericardial fat pad. There is no pleural effusion or pneumothorax. The heart size is normal. Median sternotomy wires and mediastinal surgical clips are seen, likely fr om prior coronary artery bypass grafting. There is moderate thoracic spondylosis. IMPRESSION: 1. No acute cardiopulmonary abnormality. Reviewed, dictated and finalized at location A.
[2020-12-16 18:04] VITALS: BP 130/64; PULSE 68; RESP 10; TEMP 36.8; O2SAT 99
--- NOTE | 2020-12-16 18:16 | ECG_ITS ---
Measurements Intervals [place] Rate: 64 P: -6 NM: 163 QRS: -14 QRSD: 116 T: 18 QT: 411 QTc: 425 Interpretive Statements SINUS RHYTHM BORDERLINE R WAVE PROGRESSION, ANTERIOR LEADS MINIMAL Q WAVES- HIGH LATERAL LEADS BORDERLINE ECG Electronically Signed On 12-16-2020 19:16:37 CDT by Marcellus Hernandez D.O.
--- NOTE | 2020-12-16 19:54 | ED.GENADULT ---
HPI - General Adult General Chief complaint: Chest Pain Stated complaint: CP Time Seen by Provider: 12/16/20 19:05 History of Present Illness HPI narrative: Patient is a 79-year-old male who presents ER with reports of chest pain from his snf. Apparently he was walking around grabbing the center of his chest. The patient was then given some Ativan and had no additional reports of discomfort. At this time patient has no reports of discomfort and seems quite happy. He is alert and oriented x1 and this is his mental baseline. reports she had arrived at the snf around 430 and he had no complaints and they had already decided at that time they want: Ambulance and have him come to the hospital. She is unsure what time symptoms began. Patient has no memory of the event. Related Data Home Medications Medication Instructions Recorded Confirmed aspirin 81 mg PO DAILY 01/19/20 01/19/20 atorvastatin 40 mg PO HS 01/19/20 01/19/20 citalopram 20 mg PO DAILY 01/19/20 01/19/20 donepezil 10 mg PO HS 01/19/20 01/19/20 gabapentin 300 mg PO HS 01/19/20 01/19/20 glimepiride 4 mg PO QAM 01/19/20 01/19/20 Allergies Allergy/AdvReac Type Severity Reaction Status Date / Time ezetimibe Allergy Unknown Verified 12/16/20 18:15 influenza virus vaccine, Allergy Unknown Verified 12/16/20 18:15 specific niacin Allergy Unknown Verified 12/16/20 18:19 simvastatin Allergy Unknown Verified 12/16/20 18:19 Sulfa (Sulfonamide Allergy Unknown Verified 12/16/20 18:19 Antibiotics) Review of Systems Review of Systems: ROS unobtainable: Yes unobtainable due to mental status PMFSH Past Medical History Medical History (Updated 12/16/20 @ 23:58 by Nabeel Canales MD) Anxiety Coronary artery disease Dementia with behavioral disturbance Per the patient does sundown. Depression Hyperlipidemia Hyperlipidemia associated with type 2 diabetes mellitus Hypertension associated with diabetes Type 2 diabetes mellitus Surgical History Surgical History History of appendectomy History of coronary artery bypass graft x 3 Family History Family History (Updated 01/20/20 @ 16:53 by Luis A Perla MD) Father Alzheimer's dementia Other Family history unknown Social History Social History Social History: Surrogate decision maker: Lupe Turner, spouse. Code status: Full code. Smoking status: Never smoker Alcohol intake: never Substance use: never Substance use type: does not use Additional living arrangements comments: Resides in [place] with his . Additional occupation/education comments: Retired. Gender identity (if verbalized by the patient): Male Spiritual care concerns: No Exam Narrative: GENERAL: Well-appearing, well-nourished, and in no acute distress. HEAD: Normocephalic, atraumatic. EYES: PERRL and EOMI. ENT: Mucous membranes moist. CHEST: Clear to auscultation. No respiratory distress. HEART: Regular rate and rhythm. Normal peripheral pulses. ABDOMEN: Soft, nontender, nondistended. EXTREMITIES: Normal range of motion. No edema. SKIN: Warm, dry, no rash. NEURO: Alert and oriented x1. Course Course Emergency Course: Troponin negative x2. No distress here. Discharge back to snf. Vital Signs Vital signs: Vital Signs Temperature 98.2 F 12/16/20 18:04 Pulse Rate 68 12/16/20 18:04 Respiratory Rate 10 L 12/16/20 18:04 Blood Pressure 130/64 12/16/20 18:04 Pulse Oximetry 99 12/16/20 18:04 Temperature 98.2 F 12/16/20 18:04 Pulse Rate 61 12/16/20 22:04 Respiratory Rate 17 12/16/20 22:04 Blood Pressure 110/69 12/16/20 22:04 Pulse Oximetry 99 12/16/20 22:04 Medical Decision Making Vital Signs Vital Signs: Vital Signs Temperature 98.2 F 12/16/20 18:04 Pulse Rate 68 12/16/20 18:04 Respir
[2020-12-16 20:16] VITALS: BP 129/59; PULSE 64; RESP 15; O2SAT 99
[2020-12-16 20:20] LABS: Basophils Absolute Auto 0.1 K/mm3 (0.0-0.1); Basophils Percent Auto 0.6 % (0.2-1.2); Eosinophils Absolute Auto 0.2 K/mm3 (0-0.3); Eosinophils Percent Auto 2.1 % (0-4.4); Hematocrit 44.9 % (42.0-52.0); Hemoglobin 15.6 g/dL (14.0-18.0); Immature Granulocyte Absolute 0.04 K/mm3 (0.00-0.031); Immature Granulocyte Percent A 0.4 % (0-0.5); Lymphocytes Absolute Auto 2.93 K/mm3 (0.9-3.2); Lymphocytes Percent Auto 27.7 % (18.3-44.2); Mean Corpuscular HGB Conc 34.7 g/dl (32-36); Mean Corpuscular Hemoglobin 31.2 pg (26-34); Mean Corpuscular Volume 89.8 fl (80-100); Mean Platelet Volume 9.9 fl (7.4-10.4); Monocytes Percent Auto 9.5 % (2.6-8.5); Neutrophils Absolute Auto 6.3 K/mm3 (1.3-6.7); Neutrophils Percent Auto 59.7 % (45.5-73.1); Platelet Count Result 229 k/mm3 (150-375); Red Cell Distribution Width 13.4 % (11.5-14.5); White Blood Count 10.6 K/mm3 (4.5-10.0)
[2020-12-16 20:30] LABS: Partial Thromboplastin Time 26.4 SECONDS (22.3-36.8)
[2020-12-16 20:33] LABS: Alanine Aminotransferase 19 U/L (4-50); Albumin Level 4.4 g/dL (3.5-5.1); Alkaline Phosphatase 75 U/L (38-126); Anion Gap 10 mmol/L (8-16); Aspartate Amino Transferase 20 U/L (17-59); Bilirubin,Total 0.6 mg/dL (0.2-1.3); Blood Urea Nitrogen 17 mg/dL (9-20); Calcium 9.1 mg/dL (8.4-10.2); Carbon Dioxide 25 mmol/L (22-30); Chloride 101 mmol/L (98-107); Estimated CRCL calculation 61 ml/min; Estimated Glomerular Filt Rate > 60; Glucose 133 mg/dL (65-110); Lipase 84 U/L (23-300); Sodium 136 mmol/L (137-145)
[2020-12-16 20:41] LABS: Potassium 4.1 mmol/L (3.4-5.0)
[2020-12-16 20:43] LABS: Troponin I < 0.012 ng/mL (0.000-0.034)
[2020-12-16 22:04] VITALS: BP 110/69; PULSE 61; RESP 17; O2SAT 99
[2020-12-16 23:21] LABS: Troponin I < 0.012 ng/mL (0.000-0.034)
[2020-12-17 00:30] VITALS: BP 120/75; PULSE 80; RESP 16; O2SAT 98
== END 2020-12-17 00:32 ==
PROVIDERS: Emergency Provider Emergency Medicine; PCP Internal Medicine Geriatric Medicine
DX: R07.9 Chest pain, unspecified (principal); I25.10 Atherosclerotic heart disease of native coronary artery without angina pectoris; F03.91 Unspecified dementia, unspecified severity, with behavioral disturbance; F05 Delirium due to known physiological condition; E11.9 Type 2 diabetes mellitus without complications; E78.5 Hyperlipidemia, unspecified; I10 Essential (primary) hypertension; R94.31 Abnormal electrocardiogram [ECG] [EKG]; Z79.82 Long term (current) use of aspirin; Z79.899 Other long term (current) drug therapy
CPT/HCPCS: 36415; 71046; 80053; 83690; 84484; 85025; 85610; 85730; 93005; 99284

== ENCOUNTER 2021-10-15 20:44 | Emergency (ER) | payer MEDICARE, SELFPAY ==
--- NOTE | ~2021-10-15 | CT_ITS ---
EXAMINATION: CT cervical spine wo con DATE: 10/15/2021 21:54 INDICATION: Fall. Neck injury. TECHNIQUE: Computed tomography (CT) of the cervical spine was performed without intravenous contrast. Automated exposure control and iterative reconstruction technique were employed. Exam dose: 435.43 mGy-cm total exam DLP. COMPARISON: None FINDINGS: Status post anterior surgical fusion at C5-7. There is moderate degenerative disc disease a t the remaining interspaces. There is prominent degenerative change at the apophyseal joints. There i s prominent uncovertebral joint spurring at C5-6 and C6-7. C1 and C2 are normally aligned and the odontoid process is intact. No fracture or dislocation or lock ed facet or prevertebral soft tissue swelling.. IMPRESSION: Status post anterior surgical fusion at C5-C7 Cervical spondylosis No fracture or dislocation or locked facet Reviewed, dictated and finalized at Location A. Reviewed, dictated and finalized at location B.
--- NOTE | ~2021-10-15 | CT_ITS ---
EXAMINATION: CT brain wo con DATE: 10/15/2021 21:54 INDICATION: Head injury. TECHNIQUE: Computed tomography (CT) of the head was performed without intravenous contrast. The mA wa s adjusted according to patient size. Iterative reconstruction technique was employed. The dose-lengt h product was 605.33 mGy-cm. COMPARISON: Head CT 04/14/2020 FINDINGS: There are scattered areas of low attenuation in the cerebral white matter, which is within normal limits for the patient's age. There is diffuse brain volume loss. There is no intracranial hem orrhage, acute infarction, or abnormal intracranial mass lesion. The ventricles are normal in size. T here is mucosal thickening in the paranasal sinuses. The orbits are normal. There is a left mastoid e ffusion. IMPRESSION: 1. Normal aging brain. Reviewed, dictated and finalized at location A. IMPRESSION: 1. Normal aging brain.
[2021-10-15 20:42] VITALS: BP 136/60; PULSE 66; RESP 15; TEMP 36.6; O2SAT 100
--- NOTE | 2021-10-15 21:28 | ED.FALL ---
HPI - Fall General Chief Complaint: Fall Stated Complaint: fell and hit head Time Seen by Provider: 10/15/21 20:56 History of Present Illness HPI Narrative: Patient is a 80-year-old male sent here from the residential after bumping his head on a counter per EMS. [facility] staff denied any loss of consciousness. Patient has a history of dementia and a very poor historian. Patient denies any head, neck, chest, abdomen, back, pelvis or any extremity pain/injury. Related Data Home Medications Medication Instructions Recorded Confirmed aspirin 81 mg chewable tablet 81 mg PO DAILY 01/19/20 01/19/20 atorvastatin 40 mg tablet 40 mg PO HS 01/19/20 01/19/20 citalopram 20 mg tablet 20 mg PO DAILY 01/19/20 01/19/20 donepezil 10 mg tablet 10 mg PO HS 01/19/20 01/19/20 gabapentin 300 mg capsule 300 mg PO HS 01/19/20 01/19/20 glimepiride 4 mg tablet 4 mg PO QAM 01/19/20 01/19/20 Allergies Allergy/AdvReac Type Severity Reaction Status Date / Time ezetimibe Allergy Unknown Verified 10/15/21 20:46 influenza virus vaccine, Allergy Unknown Verified 10/15/21 20:46 specific niacin Allergy Unknown Verified 10/15/21 20:46 simvastatin Allergy Unknown Verified 10/15/21 20:46 Sulfa (Sulfonamide Allergy Unknown Verified 10/15/21 20:46 Antibiotics) Review of Systems Review of Systems: Per HPI ROS unobtainable: Yes other (Dementia) PMFSH Past Medical History Medical History Anxiety Coronary artery disease Dementia with behavioral disturbance Per the patient does sund. Depression Hyperlipidemia Hyperlipidemia associated with type 2 diabetes mellitus Hypertension associated with diabetes Type 2 diabetes mellitus Surgical History Surgical History History of appendectomy History of coronary artery bypass graft x 3 Family History Family History Father Alzheimer's dementia Other Family history unknown Social History Social History Social History: Surrogate decision maker: Lupe Turner, spouse. Code status: Full code. Smoking status: Never smoker Alcohol intake: never Substance use: never Substance use type: does not use Additional living arrangements comments: Resides in [place] with his . Additional occupation/education comments: Retired. Gender identity (if verbalized by the patient): Male Spiritual care concerns: No Exam Const: General: cooperative, healthy appearing, comfortable, no acute distress, well developed, alert and awake Orientation/consciousness: oriented to person HENMT: Head: normal to inspection, normocephalic and atraumatic Ears: hearing grossly normal bilaterally, TM normal on the right and TM normal on the left General nose exam: Normal external nose present, Normal nares present and No nasal discharge present Face and sinus: normal facial exam Mouth: Yes Normal oral and palatal mucosa present, Yes lip normal, Yes tongue normal and Yes oropharynx normal Throat: posterior oropharynx normal, tonsils normal and uvula midline Eyes: General: appearance normal, both eyes and all related structures Pupils: Equal, round and reactive pupils present EOM: EOMs intact bilaterally Neck: Neck: normal visual inspection, full ROM, no lymphadenopathy and no meningeal signs Chest: Chest palpation & inspection: normal inspection of the chest Resp: Effort & Inspection: normal respiratory effort, able to speak in complete sentences, no respiratory distress and not tachypneic Auscultation: clear to auscultation bilaterally, no crackles, no rales, no rhonchi and no wheezes Cardio: Rate: regular rate Rhythm: regular rhythm GI: Inspection: normal to inspection GI Palp: No abdominal tenderness, Yes Soft to palpation, No Tenderness to palpation pres
[2021-10-15 22:18] VITALS: BP 147/60; PULSE 66; RESP 14; O2SAT 99
== END 2021-10-15 23:19 ==
PROVIDERS: Emergency Provider Emergency Medicine; PCP Internal Medicine Geriatric Medicine
DX: S09.90XA Unspecified injury of head, initial encounter (principal); F03.91 Unspecified dementia, unspecified severity, with behavioral disturbance; I25.10 Atherosclerotic heart disease of native coronary artery without angina pectoris; E11.9 Type 2 diabetes mellitus without complications; I15.2 Hypertension secondary to endocrine disorders; E78.49 Other hyperlipidemia; Z98.1 Arthrodesis status; M47.812 Spondylosis without myelopathy or radiculopathy, cervical region; W22.8XXA Striking against or struck by other objects, initial encounter
CPT/HCPCS: 70450; 72125; 99284

== ENCOUNTER 2022-12-23 12:04 | Inpatient (IN) | payer MEDICARE, MEDICAID, SELFPAY ==
[2022-12-23] VITALS (37 sets, daily range): BP systolic 132–190; BP diastolic 68–143; PULSE 74–116; RESP 10–32; TEMP 36.2–38.3; O2SAT 91–100; BMI 25.7
--- NOTE | ~2022-12-23 | XR_ITS ---
XR chest 1V portable DATE: 12/23/2022 13:26 INDICATION: Shortness of breath TECHNIQUE: Portable AP chest on 12/23/2022 at 1323 hours COMPARISON: 12/16/2020 AP and lateral chest FINDINGS: Status post sternotomy. Status post lower anterior cervical spine surgical fusion. Normal heart size. Aortic calcification. No pulmonary infiltrate or consolidation, pleural effusion or pulmonary vascular congestion or pneumo thorax. IMPRESSION: No active cardiac pulmonary disease Aortic atherosclerosis Reviewed, dictated and finalized at location A.
--- NOTE | ~2022-12-23 | XR_ITS ---
EXAMINATION: XR chest 1V portable DATE: 12/25/2022 05:57 INDICATION: Pneumonia. TECHNIQUE: A single frontal view of the chest was obtained. COMPARISON: Chest single view 12/23/2022 FINDINGS: There is mild atelectasis in the lower lung zones. No pleural effusion or pneumothorax. The heart size is normal. Median sternotomy wires and mediastinal surgical clips are seen, likely from p rior coronary artery bypass grafting. There are changes of anterior fusion procedure in surgical spin e. IMPRESSION: 1. Mild atelectasis in the lower lung zones. Reviewed, dictated and finalized at location A.
--- NOTE | ~2022-12-23 | CT_ITS ---
EXAMINATION: CT brain wo con DATE: 12/24/2022 01:15 INDICATION: Altered mental status. TECHNIQUE: Computed tomography (CT) of the head was performed without intravenous contrast. The mA wa s adjusted according to patient size. Iterative reconstruction technique was employed. The dose-lengt h product was 681.00 mGy-cm. COMPARISON: Head CT 10/15/2021 FINDINGS: There are scattered areas of low attenuation in the cerebral white matter, which is within normal limits for the patient's age. There is no intracranial hemorrhage, acute infarction, or abnorm al intracranial mass lesion. The ventricles are normal in size. The orbits are normal. There is mucos al thickening in the paranasal sinuses. There are small bilateral mastoid effusions. IMPRESSION: 1. Normal aging brain. Reviewed, dictated and finalized at location A. IMPRESSION: 1. Normal aging brain.
--- NOTE | 2022-12-23 12:07 | ECG_ITS ---
Measurements Intervals [place] Rate: 74 P: -3 [place]: 159 QRS: -25 QRSD: 104 T: 18 QT: 384 QTc: 426 Interpretive Statements SINUS RHYTHM NONSPECIFIC T-WAVE ABNORMALITY ABNORMAL ECG COMPARED TO ECG 12/16/2020 18:21:04 NO SIGNIFICANT CHANGES Electronically Signed On 12-24-2022 9:23:24 CDT by Luis A Perla M.D.
--- NOTE | 2022-12-23 14:29 | ED.GENADULT ---
HPI - General Adult General Chief complaint: Upper Respiratory Infection Stated complaint: decreased LOC, COVID+ 12/22 Time Seen by Provider: 12/23/22 12:39 History of Present Illness HPI narrative: Adrián Turner is an 82 y/o male PMHx of HTN, HLD, DM, Dementia, lives in a memory care facility he is DNR has been on hospice twice and recently d/c from hospice as he started to eat more and putting more weight on his baseline orientation X 0-1 - he was diagnosed with covid yesterday and his Nursing facility sent him here concerned that is respiratory congestion was getting worse. Related Data Home Medications Medication Instructions Recorded Confirmed aspirin 81 mg chewable tablet 81 mg PO DAILY 01/19/20 01/19/20 atorvastatin 40 mg tablet 40 mg PO HS 01/19/20 01/19/20 citalopram 20 mg tablet 20 mg PO DAILY 01/19/20 01/19/20 donepezil 10 mg tablet 10 mg PO HS 01/19/20 01/19/20 gabapentin 300 mg capsule 300 mg PO HS 01/19/20 01/19/20 glimepiride 4 mg tablet 4 mg PO QAM 01/19/20 01/19/20 Allergies Allergy/AdvReac Type Severity Reaction Status Date / Time ezetimibe Allergy Unknown Verified 12/23/22 12:18 influenza virus vaccine, Allergy Unknown Verified 12/23/22 12:18 specific niacin Allergy Unknown Verified 12/23/22 12:18 simvastatin Allergy Unknown Verified 12/23/22 12:18 Sulfa (Sulfonamide Allergy Unknown Verified 12/23/22 12:18 Antibiotics) Review of Systems Review of Systems: ROS unobtainable: Yes unobtainable due to mental status PMFSH Past Medical History Medical History Anxiety Coronary artery disease Dementia with behavioral disturbance Per the patient does sundown. Depression Hyperlipidemia Hyperlipidemia associated with type 2 diabetes mellitus Hypertension associated with diabetes Type 2 diabetes mellitus Surgical History Surgical History History of appendectomy History of coronary artery bypass graft x 3 Family History Family History Father Alzheimer's dementia Other Family history unknown Social History Social History Social History: Surrogate decision maker: Lupe Turner, spouse. Code status: Full code. Smoking status: Never smoker Alcohol intake: never Substance use: never Substance use type: does not use Additional living arrangements comments: Resides in [place] with his . Additional occupation/education comments: Retired. Gender identity (if verbalized by the patient): Male Spiritual care concerns: No Exam Narrative: GENERAL: well-nourished, and in no acute distress. HEAD: Normocephalic, atraumatic. EYES: PERRLA ENT: Nares clear, no rhinorrhea or epistaxis. Mucous membranes moist. Oropharynx without tonsillar hypertrophy exudate or other lesions. NECK: Supple. No adenopathy or masses. No carotid bruits or JVD CHEST: Clear to auscultation. No respiratory distress. HEART: Regular rate and rhythm. No murmur heard. Normal peripheral pulses. ABDOMEN: Soft, nontender, nondistended, normal active bowel sounds. EXTREMITIES: Normal range of motion. No edema. SKIN: Warm, dry, no rash. NEURO: alert - baseline orientation X 0-1 Course Vital Signs Vital signs: Vital Signs Temperature 37.0 C 12/23/22 12:02 Pulse Rate 74 12/23/22 12:02 Respiratory Rate 18 12/23/22 12:02 Blood Pressure 162/73 H 12/23/22 12:02 Pulse Oximetry 95 12/23/22 12:02 Oxygen Delivery Room Air 12/23/22 12:02 Temperature 37.5 C 12/23/22 17:33 Pulse Rate 93 12/23/22 17:17 Respiratory Rate 23 H 12/23/22 17:17 Blood Pressure 138/99 H 12/23/22 17:17 Pulse Oximetry 94 12/23/22 17:17 Oxygen Delivery Room Air 12/23/22 12:13 Medical Decision Making MDM Narrative Medical decision making narrative: On ex
[2022-12-23 15:26] LABS: Influenza A QL RT-PCR Negative (Negative); Influenza B QL RT-PCR Negative (Negative); RSV RNA, RT-PCR Negative (Negative); SARS-CoV-2 RNA PCR Positive (Negative)
[2022-12-23 15:35] LABS: Basophils Absolute Auto 0.1 K/mm3 (0.0-0.1); Basophils Percent Auto 0.3 % (0.2-1.2); Eosinophils Percent Auto 0.1 % (0-4.4); Hematocrit 48.2 % (42.0-52.0); Hemoglobin 16.5 g/dL (14.0-18.0); Immature Granulocyte Absolute 0.06 K/mm3 (0.00-0.031); Immature Granulocyte Percent A 0.3 % (0-0.5); Lymphocytes Absolute Auto 1.28 K/mm3 (0.9-3.2); Lymphocytes Percent Auto 7.3 % (18.3-44.2); Mean Corpuscular HGB Conc 34.2 g/dl (32-36); Mean Corpuscular Hemoglobin 32.2 pg (26-34); Mean Platelet Volume 10.1 fl (7.4-10.4); Monocytes Absolute Auto 2.1 K/mm3 (0.1-0.6); Platelet Count Result 224 k/mm3 (150-375); Red Blood Count 5.13 M/mm3 (4.6-6.20); Red Cell Distribution Width 13.2 % (11.5-14.5); White Blood Count 17.5 K/mm3 (4.5-10.0)
[2022-12-23 16:02] LABS: Anion Gap 12 mmol/L (8-16); Blood Urea Nitrogen 27 mg/dL (9-20); Carbon Dioxide 21 mmol/L (22-30); Chloride 104 mmol/L (98-107); Estimated Glomerular Filt Rate > 60; Glucose 188 mg/dL (65-110); Potassium 4.8 mmol/L (3.4-5.0); Sodium 137 mmol/L (137-145)
[2022-12-23] MEDS: ACETAMINOPHEN 650 MG SUPPOSITORY RECTAL (16:18)
[2022-12-23] MEDS: KETOROLAC 30 MG/ML VIAL (*BKC) IV PUSH (16:18)
[2022-12-23] MEDS: LACTATED RINGERS 1,000 ML 75 ML IV CONT (17:24)
--- NOTE | 2022-12-23 18:42 | ADMGEN ---
This patient, [place] Jalen Yue Alvarado, was admitted to 3 [facility] Surg Room 317-01. Patient/family oriented to hospital policies and general routines including ID bracelet, bed and alarms, visiting hours, pain management, procedures, bathroom and other care routines, personal items, smoking policy, room service/diet, and visiting hours. Information on how to activate the Rapid Response Team has been discussed. Patient/Family are encouraged to report perceived risks to care and to ask questions if they do not understand what they are told or what they should do.
--- NOTE | 2022-12-23 19:01 | PM.IMHP ---
H&P: HPI History of Present Illness Date/Time: 12/23/22 20:00 Chief Complaint: Congestion, weakness, COVID positive. Narrative: This is an 82-year-old male with dementia, coronary artery disease, hypertension, hyperlipidemia, and diabetes who presented to the emergency department via EMS from a local [facility] facility for evaluation of congestion and weakness after testing positive for COVID. He is alert and oriented x 1 to 2 at baseline and seems more confused today and he is not able to provide much in the way of history. As such majority the following is obtained via a review of his electronic medical records as well as ED documentation. He has been on hospice 2 times and was recently discharged from that service as he seemed to be doing better (eating more in putting on some weight). The last couple of days he has apparently been less responsive and he was diagnosed with COVID yesterday. Today staff reports that he had audible gurgling and they were concerned about his respiratory status and he was sent in for evaluation. In the ED: Temperature was 100.9? F on arrival. Blood pressures have been stable, running in the 150s to 160s systolic. He is currently on 2 L nasal cannula and maintaining an SpO2 in the mid 90s. Labs were significant for WBC count of 17.5, BUN 27, glucose 188. Electrolytes were normal. SARS-CoV-2 by PCR was positive. Chest x-ray showed no active cardiopulmonary disease. He is being admitted in this setting for further treatment of COVID given his hypoxia. Son reiterates that he is a DNR/DNI but would like treatment. Review of Systems Review of Systems: Unable to obtain as the patient is nonverbal at this time. [facility] Past Medical History Medical History (Updated 12/24/22 @ 00:19 by Lou Santos PA-C) Anxiety Coronary artery disease Dementia with behavioral disturbance Per the patient does sund. Depression Hyperlipidemia Hypertension Type 2 diabetes mellitus Surgical History Surgical History History of appendectomy History of coronary artery bypass graft x 3 Family History Family History Father Alzheimer's dementia Other Family history unknown Social History Social History (Updated 12/24/22 @ 14:57 by Lou Santos PA-C) Social History: Surrogate decision maker: Lupe Turner, spouse. Code status: Do not resuscitate. Smoking status: Unknown if ever smoked Alcohol intake: unknown Substance use: unknown Substance use type: does not use Additional living arrangements comments: Memory care. Additional occupation/education comments: Retired. Spiritual care concerns: No Meds Home Medications and Allergies Home Medications Medication Instructions Recorded Confirmed Type aspirin 81 mg chewable tablet 81 mg PO DAILY 01/19/20 12/23/22 History gabapentin 300 mg capsule 300 mg PO HS 01/19/20 12/23/22 History acetaminophen 650 mg rectal 650 mg RECTAL Q6H PRN pain or fever 12/23/22 12/23/22 History suppository ascorbic acid (vitamin C) 500 mg 500 mg PO DAILY 12/23/22 12/23/22 History tablet buspirone 10 mg tablet 10 mg PO TID 12/23/22 12/23/22 History carbidopa 10 mg-levodopa 100 mg 1 tablet PO TID 12/23/22 12/23/22 History tablet clonazepam 1 mg tablet 1 mg PO TID 12/23/22 12/23/22 History divalproex 125 mg capsule,delayed 500 mg PO Q12H 12/23/22 12/23/22 History release sprinkle duloxetine 60 mg capsule,delayed 60 mg PO DAILY 12/23/22 12/23/22 History release insulin glargine 100 unit/mL 15 unit subcut HS 12/23/22 12/23/22 History subcutaneous solution (Lantus U-100 Insulin) loperamide 2 mg capsule 2 mg PO PRN PRN Diarrhea 12/23/22 12/23/22 History trazodone 100 mg tablet 100 mg PO HS 12/23/22 12/23/22 History Allergies Allergy/AdvReac Type Severity Reaction Status Date / Time ezetimibe Allergy Unknown
[2022-12-23] MEDS: INSULIN GLARGINE (*BKC) 100 UNITS/ML 15 UNITS SUB-Q (22:10)
[2022-12-23] MEDS: GABAPENTIN 300 MG CAPSULE PO (22:10)
[2022-12-23] MEDS: traZODone HCL 50 MG TABLET 100 MG PO (22:11)
[2022-12-23] MEDS: INSULIN ASPART (*BKC) 100 UNITS/ML SUB-Q (22:11)
[2022-12-23] MEDS: DIVALPROEX SODIUM SPRINKLE 125 MG CAP.DR 500 MG PO (22:11)
[2022-12-23 22:12] LABS: Glucose Point of Care 205 mg/dl (65-105)
[2022-12-23] MEDS: REMDESIVIR 200 MG/NS 250 ML 200 MG/250 ML BAG 250 MG IVPB (22:19)
[2022-12-23 22:46] LABS: Alanine Aminotransferase 20 U/L (6-50)
[2022-12-24] VITALS (12 sets, daily range): BP systolic 100–169; BP diastolic 58–79; PULSE 52–79; RESP 16–20; TEMP 35.7–36.6; O2SAT 97–100; BMI 25.7
[2022-12-24 01:07] LABS: Lactic Acid Reflex 1.6 mmol/L (0.7-2.0)
[2022-12-24 01:46] LABS: CRP 18.4 mg/dL (<1.0)
[2022-12-24 01:55] LABS: Appearance Urine Clear (Clear); Bilirubin Urine 1+ (Negative); Blood Urine Trace-intact (Negative); Color Urine Dark Yellow (Yellow); Glucose Urine UA Negative (Negative); Ketones Urine 1+ mg/dL (Negative); Leukocyte Esterase Ur Negative LEU/UL (Negative); Nitrate Urine Negative (Negative); Protein Urine 1+ mg/dL (Negative); Specific Grav Ur 1.025 (1.001-1.035); pH Urine 5.5 (5.0-9.0)
[2022-12-24 01:58] LABS: Procalcitonin 0.6 ng/mL
[2022-12-24 02:12] LABS: Thyroid Stimulating Hormone Reflex 0.749 uIU/mL (0.465-4.68)
[2022-12-24 02:55] LABS: Bacteria Urine None Seen /hpf; Need Manual Microscopic Reviewed; RBC Urine 0-2 /hpf (0-2); Squamous Epithelial Cell Urine Occasional /hpf (Few); WBC Urine 0-5 /hpf
[2022-12-24 02:58] LABS: Add Urine Microscopic? YES
[2022-12-24 07:55] LABS: Glucose Point of Care 199 mg/dl (65-105)
[2022-12-24] MEDS: CARBIDOPA/LEVODOPA 10/100 MG TABLET 1 TABLET PO ×2 (09:30→16:38)
[2022-12-24] MEDS: ASPIRIN 81 MG CHEWABLE TABLET PO (09:30)
[2022-12-24] MEDS: clonazePAM (*CRX) 0.5 MG TABLET 1 MG PO ×2 (09:30→16:38)
[2022-12-24] MEDS: DIVALPROEX SODIUM SPRINKLE 125 MG CAP.DR 500 MG PO ×2 (09:30→21:11)
[2022-12-24] MEDS: ASCORBIC ACID 500 MG TABLET PO (09:30)
[2022-12-24] MEDS: DULoxetine HCL 60 MG CAPSULE.DR PO (09:30)
[2022-12-24] MEDS: busPIRone HCL 10 MG TABLET PO ×2 (09:31→16:39)
[2022-12-24 09:45] LABS: Alanine Aminotransferase 20 U/L (6-50); Estimated CRCL calculation 39 ml/min; Estimated Glomerular Filt Rate 49; Prothrombin Time 13.7 Seconds (11.1-14.7)
--- NOTE | 2022-12-24 10:50 | PM.IMPN ---
Progress Note: A&P Assessment and Plan (1) COVID-19: Code(s): U07.1 - COVID-19 Status: Acute (2) Leukocytosis: Code(s): D72.829 - Elevated white blood cell count, unspecified Status: Acute (3) Hypertension: Code(s): I10 - Essential (primary) hypertension Status: Acute (4) Altered mental status: Code(s): R41.82 - Altered mental status, unspecified Status: Acute (5) Dementia: Code(s): F03.90 - Unspecified dementia, unspecified severity, without behavioral disturbance, psychotic disturbance, mood disturbance, and anxiety Status: Acute (6) Type 2 diabetes mellitus: Code(s): E11.9 - Type 2 diabetes mellitus without complications Status: Chronic Plan The patient presented to the emergency department for evaluation of congestion and weakness after he was found to be COVID positive as detailed in HPI. Labs, imaging, EKG, and all reports were personally reviewed. He is more confused from baseline, possibly due to febrile illness however he is not following commands as usual thus will obtain a brain CT to rule out acute process there. White blood cell count however is elevated at 17.5 thus he may have an underlying bacterial infection as well however his chest x-ray was clear. Urinalysis has been ordered and is pending. Hold antibiotics for now. Obtain blood cultures and check lactic acid level. He has been started on dexamethasone and remdesivir as he does have an oxygen requirement with his positive COVID status. He is at high risk for complications. Blood pressures were reviewed and they have been stable if not a bit high. Continue antihypertensives as long as he is alert enough to take his medications. Random glucose was 188 and will be monitored closely while receiving dexamethasone. Continue basal insulin. Initiate sliding scale insulin, Accu-Cheks, and hypoglycemic protocol. The rest of his home medications will be reviewed and resumed as appropriate. Subjective Date/time seen: 12/24/22 10:50 Interval history: No new complaints. Currently on 2L. Respiratory status is about the same. Exam Narrative: General:?Moderately ill-appearing gentleman sitting up in bed. Weight: 81.3 kg. BMI: 25.7. HEENT:??PERRL, EOMI.? Sclerae anicteric.? Conjunctiva mildly injected.?Tacky mucous membranes. Neck:??Supple.? No JVD. Respiratory:?Normal respiratory rate. Currently on 2 L nasal cannula. Scattered upper airway rhonchi noted. Cardiovascular:??Regular rate and rhythm with S1-S2.? Chest:??Well-healed sternotomy scar.? Gastrointestinal:??Abdomen is soft, nontender, and nondistended with positive bowel sounds. Skin: Cool and mildly diaphoretic. Extremities:??No cyanosis, clubbing, or edema. Radial and pedal pulses intact.? Neurological:??Alert. He is not answering questions or following commands. Cranial nerves 2-12 are grossly intact. No obvious facial asymmetry. Psychiatric:?Unable to assess. Objective Data Vital Signs Vital Signs: Vital Signs - 24 hr 12/23/22 12:02 12/23/22 12:13 12/23/22 12:17 Temperature 98.6 F Pulse Rate 74 78 Respiratory Rate 18 18 Blood Pressure 162/73 H 190/77 H Pulse Oximetry 95 95 95 Oxygen Delivery Room Air Room Air Oxygen Flow Rate 12/23/22 12:18 12/23/22 12:33 12/23/22 12:45 Temperature Pulse Rate 75 75 75 Respiratory Rate 23 H 24 H 21 H Blood Pressure Pulse Oximetry 95 95 Oxygen Delivery Oxygen Flow Rate 12/23/22 12:46 12/23/22 13:00 12/23/22 13:02 Temperature Pulse Rate 75 90 89 Respiratory Rate 22 H 21 H 19 Blood Pressure 181/72 H 132/69 Pulse Oximetry 96 98 95 Oxygen Delivery Oxygen Flow Rate 12/23/22 13:15 12/23/22 13:18 12/23/22 13:56 Temperature Pulse Rate 92 96 102 H Respiratory Rate 21 H 15 26 H Blood Pressure 177/143 H Pulse Oximetry 100 99 Oxygen Delivery Oxygen Flow Rate 12/23/22 14:00 12/23/22 14:19 12/23/22 14:32 Temperature Pulse Rat
[2022-12-24 11:44] LABS: Glucose Point of Care 235 mg/dl (65-105)
--- NOTE | 2022-12-24 11:46 | PCSTNOTE ---
Therapist attempted Bedside Swallow Evaluation at approximately 11:15 however patient would not arouse to therapist speech or tapping, along with opening the shade to increase sunlight in the room. Therapist requested nurse contact throughout the day if patient's arousal increases in order to attempt swallow evaluation.
--- NOTE | 2022-12-24 13:27 | PC.NURSE ---
Pt has not been alert today. Pt son states that pt has been having changes in status over the last 3 weeks. Pt was given morning medication crushed up in applesauce, but pt did not swallow well. Pt medications held at this time due to pt safety. Family and MD aware. Pt afternoon blood sugar slightly elevated, MD contacted and instructions to hold until dinner accu check done since pt is not eating. Will recheck blood sugar at dinner time. Will continue to monitor pt.
--- NOTE | 2022-12-24 15:47 | PCSTNOTE ---
Therapist contacted HUBER Finley, who reported he only awakened one time earlier due to loud noise in the room. She was able to give him one sip of water and then he refused and fell back to sleep. Will try evaluation tomorrow morning.
[2022-12-24 16:34] LABS: Glucose Point of Care 227 mg/dl (65-105)
[2022-12-24] MEDS: INSULIN ASPART (*BKC) 100 UNITS/ML SUB-Q (16:38)
[2022-12-24] MEDS: INSULIN GLARGINE (*BKC) 100 UNITS/ML 15 UNITS SUB-Q (21:10)
[2022-12-24] MEDS: traZODone HCL 50 MG TABLET 100 MG PO (21:11)
[2022-12-24] MEDS: GABAPENTIN 300 MG CAPSULE PO (21:11)
[2022-12-24] MEDS: REMDESIVIR 100 MG/NS 250 ML 100 MG/250 ML BAG 250 MG IVPB (21:11)
[2022-12-24 21:32] LABS: Glucose Point of Care 282 mg/dl (65-105)
[2022-12-25] VITALS (9 sets, daily range): BP systolic 127–144; BP diastolic 54–67; PULSE 52–66; RESP 14–18; TEMP 36.2–36.4; O2SAT 94–100
[2022-12-25 06:31] LABS: Basophils Percent Auto 0.3 % (0.2-1.2); Hematocrit 43.7 % (42.0-52.0); Hemoglobin 13.9 g/dL (14.0-18.0); Immature Granulocyte Absolute 0.05 K/mm3 (0.00-0.031); Immature Granulocyte Percent A 0.4 % (0-0.5); Lymphocytes Absolute Auto 1.33 K/mm3 (0.9-3.2); Lymphocytes Percent Auto 11.1 % (18.3-44.2); Mean Corpuscular HGB Conc 31.8 g/dl (32-36); Mean Corpuscular Hemoglobin 32.3 pg (26-34); Mean Corpuscular Volume 101.6 fl (80-100); Mean Platelet Volume 10.9 fl (7.4-10.4); Monocytes Absolute Auto 0.9 K/mm3 (0.1-0.6); Monocytes Percent Auto 7.6 % (2.6-8.5); Neutrophils Absolute Auto 9.6 K/mm3 (1.3-6.7); Neutrophils Percent Auto 80.6 % (45.5-73.1); Platelet Count Result 191 k/mm3 (150-375); Red Cell Distribution Width 12.8 % (11.5-14.5); White Blood Count 11.9 K/mm3 (4.5-10.0)
[2022-12-25 06:42] LABS: INR 1.1; Prothrombin Time 15.2 Seconds (11.1-14.7)
[2022-12-25 06:46] LABS: Alanine Aminotransferase 17 U/L (6-50); Anion Gap 11 mmol/L (8-16); Blood Urea Nitrogen 67 mg/dL (9-20); Calcium 8.4 mg/dL (8.4-10.2); Carbon Dioxide 23 mmol/L (22-30); Chloride 105 mmol/L (98-107); Estimated CRCL calculation 49 ml/min; Estimated Glomerular Filt Rate > 60; Glucose 260 mg/dL (65-110); Potassium 4.1 mmol/L (3.4-5.0); Sodium 139 mmol/L (137-145)
[2022-12-25 08:06] LABS: Glucose Point of Care 232 mg/dl (65-105)
[2022-12-25] MEDS: ASPIRIN 81 MG CHEWABLE TABLET PO (09:48)
[2022-12-25] MEDS: clonazePAM (*CRX) 0.5 MG TABLET 1 MG PO ×3 (09:48→17:12)
[2022-12-25] MEDS: CARBIDOPA/LEVODOPA 10/100 MG TABLET 1 TABLET PO ×3 (09:48→17:12)
[2022-12-25] MEDS: busPIRone HCL 10 MG TABLET PO ×3 (09:49→17:12)
[2022-12-25] MEDS: DULoxetine HCL 60 MG CAPSULE.DR PO (09:49)
[2022-12-25] MEDS: ASCORBIC ACID 500 MG TABLET PO (09:49)
[2022-12-25] MEDS: INSULIN ASPART (*BKC) 100 UNITS/ML SUB-Q (09:50)
[2022-12-25] MEDS: DIVALPROEX SODIUM SPRINKLE 125 MG CAP.DR 500 MG PO ×2 (10:02→21:46)
--- NOTE | 2022-12-25 10:46 | PCNFU ---
Nutrition Follow-Up Complete: Inadequate oral intake related to altered mental status as evidenced by RN report of reduced responsiveness, inability to complete swallow evaluation. Goal: Diet advancement Patient is progressing towards goal. We will continue current goal. Pt current nutrition is Pureed, Level 4/DBCC with Mildly Thick Liquids, Level 2. Last recorded weight is 81.3 kg, no new weight to report. Bowel Motility:+BM reported 12/23 Labs Reviewed:Glu 260, BUN 67 Meds Noted:Remdesivir, Lantus, NovoLog, Decadron, Cymbalta Skin: WNL Additional Notes: Patient is COVID +, Spoke with [employer] today regarding intake. Dinner last night 100% of meal. Today refused. Patient was feeding patient last night. Diet supplements of Glucerna shakes BID are providing 220 kcals and 10 gms protein. Agree with diet orders. PO intake encouraged. Monitor diet advancement, swallow ability, plan of care, weights, labs Follow up in 5 day
--- NOTE | 2022-12-25 11:00 | PM.IMPN ---
Progress Note: A&P Assessment and Plan (1) COVID-19: Code(s): U07.1 - COVID-19 Status: Acute Assessment and Plan: Continue dexamethasone and remdesivir. No worsening in hypoxia or respiratory symptoms. Overall slowly improving. (2) Leukocytosis: Code(s): D72.829 - Elevated white blood cell count, unspecified Status: Acute Assessment and Plan: Monitor (3) Hypertension: Code(s): I10 - Essential (primary) hypertension Status: Acute Assessment and Plan: Monitor (4) Altered mental status: Code(s): R41.82 - Altered mental status, unspecified Status: Acute Assessment and Plan: Improved some over the last 2 days. Likely at baseline given his dementia. (5) Dementia: Code(s): F03.90 - Unspecified dementia, unspecified severity, without behavioral disturbance, psychotic disturbance, mood disturbance, and anxiety Status: Acute (6) Type 2 diabetes mellitus: Code(s): E11.9 - Type 2 diabetes mellitus without complications Status: Chronic Assessment and Plan: Blood sugars are mildly elevated. Monitor. Subjective Date/time seen: 12/25/22 11:00 Interval history: Denies new complaints Exam Narrative: General:?Moderately ill-appearing gentleman sitting up in bed. Weight: 81.3 kg. BMI: 25.7. HEENT:??PERRL, EOMI.? Sclerae anicteric.? Conjunctiva mildly injected.?Tacky mucous membranes. Neck:??Supple.? No JVD. Respiratory:?Normal respiratory rate. Currently on 2 L nasal cannula. Scattered upper airway rhonchi noted. Cardiovascular:??Regular rate and rhythm with S1-S2.? Chest:??Well-healed sternotomy scar.? Gastrointestinal:??Abdomen is soft, nontender, and nondistended with positive bowel sounds. Skin: Cool and mildly diaphoretic. Extremities:??No cyanosis, clubbing, or edema. Radial and pedal pulses intact.? Neurological:??Alert. He is not answering questions or following commands. Cranial nerves 2-12 are grossly intact. No obvious facial asymmetry. Psychiatric:?Unable to assess. Objective Data Vital Signs Vital Signs: Vital Signs - 24 hr 12/24/22 14:00 12/24/22 12:03 12/24/22 16:02 Temperature 96.3 F L Pulse Rate 79 54 L 70 Respiratory Rate 16 Blood Pressure 100/69 Pulse Oximetry 97 Oxygen Delivery Oxygen Flow Rate 12/24/22 21:48 12/24/22 20:00 12/25/22 00:00 Temperature 97.0 F L Pulse Rate 75 68 58 L Respiratory Rate 18 Blood Pressure 169/79 H Pulse Oximetry 100 Oxygen Delivery Oxygen Flow Rate 12/25/22 04:00 12/25/22 05:56 12/25/22 08:00 Temperature 97.6 F Pulse Rate 55 L 54 L Respiratory Rate 18 Blood Pressure 144/56 H Pulse Oximetry 97 94 Oxygen Delivery Nasal Cannula Oxygen Flow Rate 2 12/25/22 08:00 Temperature Pulse Rate Respiratory Rate Blood Pressure Pulse Oximetry 94 Oxygen Delivery Nasal Cannula Oxygen Flow Rate 2 Intake/Output Intake/Output: Intake & Output 12/22/22 12/23/22 12/24/22 12/25/22 23:59 23:59 23:59 23:59 Intake Total 300 250 Output Total 150 Balance 150 250 Meds/Results Medications: Active Medications Generic Name Dose Route Start Last Admin Trade Name Freq PRN Reason Stop Dose Admin Acetaminophen 650 mg 12/23/22 21:26 Acetaminophen 650 Mg Suppository RECTAL Q6H PRN pain or fever Ascorbic Acid 500 mg 12/24/22 09:00 12/25/22 09:49 Ascorbic Acid 500 Mg Tablet PO 500 mg DAILY KRISTEN Administration Aspirin 81 mg 12/24/22 08:00 12/25/22 09:48 Aspirin 81 Mg Chewable Tablet PO 81 mg DAILY@0800 KRISTEN Administration Buspirone HCl 10 mg 12/24/22 09:00 12/25/22 09:49 Buspirone Hcl 10 Mg Tablet PO 10 mg TID KRISTEN Administration Carbidopa/Levodopa 1 tablet 12/24/22 08:00 12/25/22 09:48 Carbidopa/Levodopa 10/100 Mg Tablet PO 1 tablet TIDWM KRISTEN Administration Clonazepam 1 mg 12/24/22 09:00 12/25/22 09:48 Clonazepam (*Crx) 0.5 Mg T
[2022-12-25 12:07] LABS: Glucose Point of Care 200 mg/dl (65-105)
--- NOTE | 2022-12-25 12:24 | PCSTNOTE ---
Please refer to the Bedside Swallow Evaluation in the EMR. Please note, silent aspiration cannot be ruled out at bedside.
[2022-12-25 16:40] LABS: Glucose Point of Care 174 mg/dl (65-105)
[2022-12-25] MEDS: REMDESIVIR 100 MG/NS 250 ML 100 MG/250 ML BAG 250 MG IVPB (21:45)
[2022-12-25] MEDS: GABAPENTIN 300 MG CAPSULE PO (21:46)
[2022-12-25] MEDS: INSULIN GLARGINE (*BKC) 100 UNITS/ML 15 UNITS SUB-Q (21:46)
[2022-12-25] MEDS: traZODone HCL 50 MG TABLET 100 MG PO (21:46)
[2022-12-25 22:27] LABS: Glucose Point of Care 130 mg/dl (65-105)
[2022-12-26] VITALS: PULSE 52
[2022-12-26 04:00] VITALS: PULSE 57
[2022-12-26 06:00] VITALS: BP 153/57; PULSE 51; RESP 16; TEMP 36.3; O2SAT 100
[2022-12-26 07:14] LABS: Alanine Aminotransferase 18 U/L (6-50); Estimated CRCL calculation 54 ml/min; Estimated Glomerular Filt Rate > 60; INR 1.1; Prothrombin Time 14.9 Seconds (11.1-14.7)
[2022-12-26 07:53] LABS: Glucose Point of Care 101 mg/dl (65-105)
[2022-12-26 08:00] VITALS: PULSE 50; O2SAT 94
[2022-12-26] MEDS: ASPIRIN 81 MG CHEWABLE TABLET PO (08:54)
[2022-12-26] MEDS: DULoxetine HCL 60 MG CAPSULE.DR PO (08:54)
[2022-12-26] MEDS: clonazePAM (*CRX) 0.5 MG TABLET 1 MG PO ×2 (08:54→12:42)
[2022-12-26] MEDS: DIVALPROEX SODIUM SPRINKLE 125 MG CAP.DR 500 MG PO (08:54)
[2022-12-26] MEDS: CARBIDOPA/LEVODOPA 10/100 MG TABLET 1 TABLET PO (08:54)
[2022-12-26] MEDS: busPIRone HCL 10 MG TABLET PO ×2 (08:55→12:41)
[2022-12-26] MEDS: ASCORBIC ACID 500 MG TABLET PO (08:55)
--- NOTE | 2022-12-26 10:59 | PM.DS ---
DS: Admitting Diagnosis Discharge Date 12/26/22 Admitting Diagnosis altered mental status. covid-19 pneumonia DS: Discharge Diagnosis Discharge Diagnosis (1) COVID-19: Code(s): U07.1 - COVID-19 Status: Acute (2) Dementia: Code(s): F03.90 - Unspecified dementia, unspecified severity, without behavioral disturbance, psychotic disturbance, mood disturbance, and anxiety Status: Acute (3) Altered mental status: Code(s): R41.82 - Altered mental status, unspecified Status: Acute DS: Summary Hospital Course Hospital Course: Please see H&P performed by Lou Santos for detailed information. Pt comes from [facility]. He had dementia and is A&O x1-2 at baseline. The patient presented with acute altered mental status and found to have covid -19 pneumonia with encephalopathy and acute hypoxic respiratory failure. on day of discharge he is stable, respiratory failure resolved. Time Spent with Patient Time attestation: Total time spent providing and/or coordinating discharge services: Time spent: Greater than 30 minutes Exam Const: General: comfortable and no acute distress Resp: Effort & Inspection: normal respiratory effort Auscultation: clear to auscultation bilaterally Cardio: Rate: regular rate Rhythm: regular rhythm Heart sounds: no gallops, no murmurs and no rubs GI: GI Palp: Yes Soft to palpation, No Tenderness to palpation present (GI) and No Guarding due to palpation present (GI) Extrem: General: no edema DS: Data Data Completed and Pending Labs on day of discharge: Labs from last 24 hours 12/26/22 12/26/22 12/25/22 07:42 06:46 22:13 PT 14.9 H INR 1.1 Creatinine 1.00 Estim Creat Clear Calc 54 Estimated GFR > 60 POC Capillary Glucose 101 130 H ALT 18 12/25/22 12/25/22 16:20 11:36 PT INR Creatinine Estim Creat Clear Calc Estimated GFR POC Capillary Glucose 174 H 200 H ALT Preliminary micro results at discharge 12/24/22 00:35 Blood Culture - Preliminary Blood 12/24/22 00:35 Blood Culture - Preliminary Blood Discharge Plan Discharge Attending physician on discharge: Jacqueline Spears Discharging Clinician: Jacqueline Spears Patient Disposition: SNF Activity: no preference Diet: heart healthy and diabetic Patient Instructions: COVID-19 (Coronavirus Disease 2019) (DC), COVID-19 and Chronic Health Conditions (DC) Stand Alone Forms: General Discharge Information Follow-up/Referrals: Alistair,MD Sangita [Primary Care Provider] - Discharge Medications: Continued gabapentin 300 mg capsule 300 mg PO HS aspirin 81 mg tablet,chewable 81 mg PO DAILY acetaminophen 650 mg Suppository 650 mg RECTAL Q6H PRN (Reason: pain or fever) insulin glargine [Lantus U-100 Insulin] 100 unit/mL solution 15 unit SUBCUT HS loperamide [Imodium] 2 mg Capsule 2 mg PO PRN PRN (Reason: Diarrhea) Rx Instructions: 2mg with each loose stool, no more than 14 mg each shift clonazepam 1 mg tablet 1 mg PO TID ascorbic acid (vitamin C) 500 mg Tablet 500 mg PO DAILY trazodone 100 mg tablet 100 mg PO HS buspirone 10 mg tablet 10 mg PO TID carbidopa-levodopa 10-100 mg tablet 1 tablet PO TID divalproex 125 mg capsule, delayed rel sprinkle 500 mg PO Q12H duloxetine 60 mg capsule,delayed release(DR/EC) 60 mg PO DAILY Date of admission: 12/24/22 16:20 Primary Care Provider: AlistairSangita Admitting Provider: Kayode Valentin Attending physician on admission: Kayode Valentin Condition: Serious
[2022-12-26 11:10] LABS: Hematocrit 43.9 % (42.0-52.0); Hemoglobin 14.4 g/dL (14.0-18.0); Mean Corpuscular HGB Conc 32.8 g/dl (32-36); Mean Corpuscular Hemoglobin 31.7 pg (26-34); Mean Corpuscular Volume 96.7 fl (80-100); Mean Platelet Volume 10.8 fl (7.4-10.4); Platelet Count Result 213 k/mm3 (150-375); Red Blood Count 4.54 M/mm3 (4.6-6.20); White Blood Count 8.9 K/mm3 (4.5-10.0)
[2022-12-26 11:26] LABS: Glucose Point of Care 143 mg/dl (65-105)
[2022-12-26 11:42] LABS: Procalcitonin 0.2 ng/mL
[2022-12-26 12:00] VITALS: PULSE 52
--- NOTE | 2022-12-26 12:03 | PC.NURSE ---
called [facility] to give nurse report, left at 1149, called again no answer, called main desk, they transferred me to RN, still no answer. will try one more time. all d/c papers faxed to [facility]. patient ready for d/c with EMS.
--- NOTE | 2022-12-26 12:14 | PC.NURSE ---
1210 [facility] from [facility] called back to get report on patient
== END 2022-12-26 13:30 | DRG 177 ==
LOC: ANHED 13:15 → ANH3MEDSUR 17:17
PROVIDERS: Chiropractor; Physician Assistant; Admitting Provider Internal Medicine; Emergency Provider Nurse Practitioner Family; PCP Internal Medicine Geriatric Medicine; Visit Provider General Practice
DX: U07.1 COVID-19 (principal); J12.82 Pneumonia due to coronavirus disease 2019; E78.5 Hyperlipidemia, unspecified; E11.9 Type 2 diabetes mellitus without complications; F03.90 Unspecified dementia, unspecified severity, without behavioral disturbance, psychotic disturbance, mood disturbance, and anxiety; F41.9 Anxiety disorder, unspecified; F32.A Depression, unspecified; I10 Essential (primary) hypertension; I25.10 Atherosclerotic heart disease of native coronary artery without angina pectoris; Z66 Do not resuscitate; Z90.49 Acquired absence of other specified parts of digestive tract; Z95.1 Presence of aortocoronary bypass graft; Z79.82 Long term (current) use of aspirin; Z79.84 Long term (current) use of oral hypoglycemic drugs
CPT/HCPCS: 36415; 70450; 71045; 80048; 81001; 81003; 82565; 82948; 83605; 84145; 84443; 84460; 85025; 85027; 85610; 86140; 87040; 87637; 92610; 93005; 96374; 96375; 96376; 99285; A9270; G0378; J0248; J1100; J1815; J1885; J7120